=== PATIENT | male | born 1995 | race African-American/Black ===

== ENCOUNTER 2019-05-02 21:36 | Inpatient (IN) | payer OTHER ==
[2019-05-02] MEDS ORDERED: Sodium Chloride 0.9% 1,000 ML IV ONE (22:03)
--- NOTE | 2019-05-02 22:03 | EDM.PDOC ---
<Narcisa Whittaker - Last Filed: 05/02/19 22:33> ED HPI GENERAL MEDICAL PROBLEM - General Chief Complaint: Abdominal Pain Stated Complaint: PT HAS STOMACH PAIN Time Seen by Provider: 05/02/19 22:03 Source of Information: Reports: Patient History Limitations: Reports: No Limitations - History of Present Illness INITIAL COMMENTS - FREE TEXT/NARRATIVE: HISTORY AND PHYSICAL: History of present illness: patient is a 24-year-old male presents to the ED with complaint of abdominal pain 2 days. He states pain is in his lower abdomen and some in his upper abdomen as well.he's been nauseous and has had a couple episodes of vomiting. He denies diarrhea and states his last bowel movement was about 3 days Denies fevers, chills, chest pain, shortness of breath dysuria, hematuria, back pain. he reports history of abdominal surgeries but he is uncertain exactly what was done as he is child. Review of systems: As per history of present illness and below otherwise all systems reviewed and negative. Past medical history: As per history of present illness and as reviewed below otherwise noncontributory. Surgical history: As per history of present illness and as reviewed below otherwise noncontributory. Social history: No reported history of drug or alcohol abuse. Family history: As per history of present illness and as reviewed below otherwise noncontributory. Physical exam: General: Patient sitting comfortably in no acute distress and nontoxic appearing HEENT: Atraumatic, normocephalic, pupils reactive, negative for conjunctival pallor or scleral icterus, mucous membranes moist, throat clear, neck supple, nontender, trachea midline. No meningeal signs. Lungs: Clear to auscultation, breath sounds equal bilaterally, chest nontender. Heart: S1S2, regular, negative for clicks, rubs, or overt murmur. Abdomen: moderate suprapubic tenderness to palpation. Mild epigastric tenderness. there is a 3 cm scar to the right lower abdomen/pelvic area. Soft, nondistended. Negative for masses or hepatosplenomegaly. Negative for costovertebral tenderness. No rigidity, rebound, guarding. Pelvis: Stable nontender. Genitourinary: Deferred. Rectal: Deferred. Extremities: Atraumatic, negative for cords or calf pain. Neurovascular unremarkable. Neuro: Awake, alert, oriented. Cranial nerves II through XII unremarkable. Cerebellum unremarkable. Motor and sensory unremarkable throughout. Exam nonfocal. Notes: Diagnostics: CBC, CMP, UA, CT abdomen pelvis with contrast Therapeutics: 1L normal saline IV Prescriptions: Impression: [] Plan: [] Definitive disposition and diagnosis as appropriate pending reevaluation and review of above. Lower Abdomen Pain Score (Numeric/FACES): 10 - Related Data Allergies Allergy/AdvReac Type Severity Reaction Status Date / Time No Known Allergies Allergy Verified 05/02/19 21:51 Home Meds: Home Meds . [No Known Home Meds] 05/02/19 [History] Past Medical History - Past Health History Medical/Surgical History: Denies Medical/Surgical History Psychiatric History: Reports: None - Infectious Disease History Infectious Disease History: Reports: None Social & Family History - Tobacco Use Smoking Status *Q: Never Smoker - Recreational Drug Use Recreational Drug Use: No ED ROS GENERAL - Review of Systems Review Of Systems: ROS reveals no pertinent complaints other than HPI. ED EXAM, GI/ABD - Physical Exam Exam: See Below (see dictation) Course - Vital Signs Last Recorded V/S: Last Vital Signs Temp 37.3 C 05/03/19 01:16 Pulse 83 05/03/19 01:16 Resp BP 126/76 05/03/19 01:16 Pulse Ox 99 05/03/19 01:16 - Orders/Labs/Meds Labs: Laboratory Tests 05/02/19 05/02/19 05/02/19 Range/Units 22:06 22:15 22:15 WBC 12.21 H (4.0-11.0) K/uL RBC 6.38 H (4.50-5.90) M/uL Hgb 18.6 H (13.0-17.0) g/dL Hct 52.2 H (38.0-50.0) % MCV 81.8 (80.0-98.0) fL MCH 29.2 (27.0-32.0) pg MCHC 35.6 (31.0-37.0) g/dL RDW Std Deviation 40.0 (28.0-62.0) fl RDW Coeff of Paul 14 (11.0-15.0) % Plt Count 310 (150-400) K/uL MPV 10.30 (7.40-12.00) fL Neut % (Auto) 67.5 (48.0-80.0) % Lymph % (Auto) 22.0 (16.0-40.0) % Cotton % (Auto) 7.7 (0.0-15.0) % Eos % (Auto) 2.8 (0.0-7.0) % Baso % (Auto) 0.0 (0.0-1.5) % Neut # (Auto) 8.2 H (1.4-5.7) K/uL Lymph # (Auto) 2.7 H (0.6-2.4) K/uL Cotton # (Auto) 0.9 H (0.0-0.8) K/uL Eos # (Auto) 0.3 (0.0-0.7) K/uL Baso # (Auto) 0.0 (0.0-0.1) K/uL Nucleated RBC % 0.0 /100WBC Nucleated RBCs # 0 K/uL Lactate (0.20-2.00) mmol/L Sodium 137 (136-148) mmol/L Potassium 4.3 (3.5-5.1) mmol/L Chloride 98 (98-107) mmol/L Carbon Dioxide 26.6 (21.0-32.0) mmol/L BUN 24 H (7.0-18.0) mg/dL Creatinine 1.1 (0.8-1.3) mg/dL Est Cr Clr Drug Dosing 89.39 mL/min Estimated GFR (MDRD) > 60.0 ml/min Glucose 84 (74-106) mg/dL Calcium 10.0 (8.5-10.1) mg/dL Total Bilirubin 2.2 H (0.2-1.0) mg/dL AST 24 (15-37) IU/L ALT 17 (14-63) IU/L Alkaline Phosphatase 76 (46-116) U/L Total Protein 9.8 H (6.4-8.2) g/dL Albumin 4.8 (3.4-5.0) g/dL Globulin 5.0 H (2.6-4.0) g/dL Albumin/Globulin Ratio 1.0 (0.9-1.6) Urine Color YELLOW Urine Appearance CLEAR Urine pH 6.0 (5.0-8.0) Ur Specific [place] 1.025 (1.001-1.035) Urine Protein 30 H (NEGATIVE) mg/dL Urine Glucose (UA) NEGATIVE (NEGATIVE) mg/dL Urine Ketones 40 H (NEGATIVE) mg/dL Urine Occult Blood NEGATIVE (NEGATIVE) Urine Nitrite NEGATIVE (NEGATIVE) Urine Bilirubin MODERATE H (NEGATIVE) Urine Ictotest NEGATIVE Urine Urobilinogen 0.2 (<2.0) EU/dL Ur Leukocyte Esterase NEGATIVE (NEGATIVE) Urine RBC 0-1 (0-2/HPF) Urine WBC 0-1 (0-5/HPF) Ur Epithelial Cells RARE (NONE-FEW) Urine Bacteria RARE (NEGATIVE) 05/02/19 Range/Units 22:15 WBC (4.0-11.0) K/uL RBC (4.50-5.90) M/uL Hgb (13.0-17.0) g/dL Hct (38.0-50.0) % MCV (80.0-98.0) fL MCH (27.0-32.0) pg MCHC (31.0-37.0) g/dL RDW Std Deviation (28.0-62.0) fl RDW Coeff of Paul (11.0-15.0) % Plt Count (150-400) K/uL MPV (7.40-12.00) fL Neut % (Auto) (48.0-80.0) % Lymph % (Auto) (16.0-40.0) % Cotton % (Auto) (0.0-15.0) % Eos % (Auto) (0.0-7.0) % Baso % (Auto) (0.0-1.5) % Neut # (Auto) (1.4-5.7) K/uL Lymph # (Auto) (0.6-2.4) K/uL Cotton # (Auto) (0.0-0.8) K/uL Eos # (Auto) (0.0-0.7) K/uL Baso # (Auto) (0.0-0.1) K/uL Nucleated RBC % /100WBC Nucleated RBCs # K/uL Lactate 1.4 (0.20-2.00) mmol/L Sodium (136-148) mmol/L Potassium (3.5-5.1) mmol/L Chloride (98-107) mmol/L Carbon Dioxide (21.0-32.0) mmol/L BUN (7.0-18.0) mg/dL Creatinine (0.8-1.3) mg/dL Est Cr Clr Drug Dosing mL/min Estimated GFR (MDRD) ml/min Glucose (74-106) mg/dL Calcium (8.5-10.1) mg/dL Total Bilirubin (0.2-1.0) mg/dL AST (15-37) IU/L ALT (14-63) IU/L Alkaline Phosphatase (46-116) U/L Total Protein (6.4-8.2) g/dL Albumin (3.4-5.0) g/dL Globulin (2.6-4.0) g/dL Albumin/Globulin Ratio (0.9-1.6) Urine Color Urine Appearance Urine pH (5.0-8.0) Ur Specific [place] (1.001-1.035) Urine Protein (NEGATIVE) mg/dL Urine Glucose (UA) (NEGATIVE) mg/dL Urine Ketones (NEGATIVE) mg/dL Urine Occult Blood (NEGATIVE) Urine Nitrite (NEGATIVE) Urine Bilirubin (NEGATIVE) Urine Ictotest Urine Urobilinogen (<2.0) EU/dL Ur Leukocyte Esterase (NEGATIVE) Urine RBC (0-2/HPF) Urine WBC (0-5/HPF) Ur Epithelial Cells (NONE-FEW) Urine Bacteria (NEGATIVE) Meds: Medications Discontinued Medications Generic Name Dose Route Start Last Admin Trade Name Freq PRN Reason Stop Dose Admin Sodium Chloride 1,000 mls @ 999 mls/hr 05/02/19 22:03 05/02/19 22:15 Normal Saline IV 05/02/19 23:03 999 mls/hr STAT ONE Administration Iopamidol 100 ml 05/02/19 22:59 05/02/19 23:11 Isovue-370 (76%) IVPUSH 05/02/19 23:00 100 ml ONETIME ONE Administration Ketorolac Tromethamine 30 mg 05/02/19 23:39 05/02/19 23:53 Toradol IVPUSH 05/02/19 23:40 30 mg ONETIME ONE Administration Departure - Departure Disposition: Refer to Observation Clinical Impression: Abdominal pain, Small bowel obstruction - Discharge Information Referrals: PCP,None [Primary Care Provider] - Forms: ED Department Discharge <Venu Owens - Last Filed: 05/03/19 01:19> Departure - Departure Time of Disposition: 01:19 Condition: Good
[2019-05-02 22:48] LABS: BLOOD UREA NITROGEN,BUN 24 mg/dL (7.0-18.0); CARBON DIOXIDE,CO2 26.6 mmol/L (21.0-32.0); CHLORIDE,CL 98 mmol/L (98-107); GLUCOSE RANDOM 84 mg/dL (74-106); POTASSIUM,K 4.3 mmol/L (3.5-5.1); SODIUM,NA 137 mmol/L (136-148)
[2019-05-02] MEDS ORDERED: Iopamidol 755 Mg/ML 100 ML Bottle IVPUSH ONE (22:59)
[2019-05-02] MEDS ORDERED: Ketorolac 30 MG/ML SDV IVPUSH ONE (23:39)
--- NOTE | 2019-05-03 00:16 | CT ---
INDICATION: Abdominal pain. CT ABDOMEN AND PELVIS WITH CONTRAST TECHNIQUE: Multidetector CT imaging was performed through the abdomen and pelvis following intravenous contrast administration using 100 mL Isovue 370. Coronal and sagittal reconstructions were generated. COMPARISON: None. FINDINGS: Lower chest: Lung bases are clear. Liver: Within normal limits. Gallbladder and bile ducts: No gallbladder wall thickening or calcified gallstones. No biliary dilation identified. Pancreas: Unremarkable. Spleen: Normal. Adrenals: No nodules or masses. Kidneys, ureters, and urinary bladder: Small right renal cyst. No solid renal masses or hydronephrosis. No bladder mass or definite wall thickening. Gastrointestinal tract: Evaluation limited by a paucity of intra-abdominal fat. Moderate abnormal distention with gas and fluid of multiple small bowel loops in the left upper quadrant, central abdomen, and central pelvis with the rest of the bowel relatively collapsed, consistent with small bowel obstruction. Small bowel caliber transition not clearly localized. No definite bowel wall thickening or pneumatosis. Vascular structures: Normal for age. Peritoneum: Small amount of free fluid in the mesentery between distended small bowel loops. No loculated collection suggestive of abscess. No free air identified. Lymph nodes: No pathologically enlarged nodes identified. Reproductive organs: No pelvic masses. Bones: Normal for age. IMPRESSION: Intermediate-grade small bowel obstruction as detailed above. Underlying etiologies could include surgical adhesions, internal hernia, volvulus, etc. Associated minimal ascites is noted. JOSE URIBE MD [facility] Dictated by Fede Uribe MD @ 05/03/2019 12:12:58 AM Dictated by: Fede Uribe MD @ 05/03/2019 00:15:38 (Electronically Signed)
--- NOTE | 2019-05-03 01:21 | PCM.HP ---
H&P History of Present Illness - General Date of Service: 05/03/19 Source of Information: Patient History Limitations: Reports: No Limitations - History of Present Illness Initial Comments - Free Text/Narative: Patient is a 24 year old male who presents with 2 days of abdominal pain and bloating. It started suddenly and has not improved. He has never had any symptoms like this before. He denies fever or chills. He has not had a BM or passed flatus since this started. He had rice early today that he threw up and has not had anything to eat since. He denies any further episodes of vomiting. He had surgery in [place] as a child but doesnt know what it was for. He has a midline scar and drain sites on either side of his abdomen. He is not nauseated now. His VS were stable on presentation. His labs showed hemoconcentration. His bilirubin was elevated. His CT abdomen showed a SBO with no transition point. Lower Abdomen Pain Score (Numeric/FACES): 10 - Related Data Allergies/Adverse Reactions: Allergies Allergy/AdvReac Type Severity Reaction Status Date / Time No Known Allergies Allergy Verified 05/02/19 21:51 Home Medications: Home Meds . [No Known Home Meds] 05/02/19 [History] Past Medical History - Past Health History Medical/Surgical History: Denies Medical/Surgical History Psychiatric History: Reports: None - Infectious Disease History Infectious Disease History: Reports: None Social & Family History - Tobacco Use Smoking Status *Q: Never Smoker - Recreational Drug Use Recreational Drug Use: No H&P Review of Systems - Review of Systems: Review Of Systems: ROS reveals no pertinent complaints other than HPI. Exam - Exam Exam: See Below - Vital Signs Vital Signs: Last Vital Signs Temp 36.8 C 05/02/19 23:21 Pulse 87 05/02/19 23:21 Resp BP 128/80 05/02/19 23:21 Pulse Ox 100 05/02/19 23:21 Weight: 60 kg - Exam General: Alert, Oriented, Cooperative HEENT: Conjunctiva Clear, Mucosa Moist & [place], Posterior Pharynx Clear Neck: Supple, Trachea Midline Lungs: Clear to Auscultation, Normal Respiratory Effort Cardiovascular: Regular Rate, Regular Rhythm GI/Abdominal Exam: Soft, Non-Tender, No Mass, Distended, Other (Well healed ex lap scar along midline. No hernias palpated. Drain scars on either side of abdomen. ) Back Exam: Normal Inspection Extremities: Normal Inspection - Patient Data Lab Results Last 24 hrs: Laboratory Results - last 24 hr 05/02/19 05/02/19 05/02/19 Range/Units 22:06 22:15 22:15 WBC 12.21 H (4.0-11.0) K/uL RBC 6.38 H (4.50-5.90) M/uL Hgb 18.6 H (13.0-17.0) g/dL Hct 52.2 H (38.0-50.0) % MCV 81.8 (80.0-98.0) fL MCH 29.2 (27.0-32.0) pg MCHC 35.6 (31.0-37.0) g/dL RDW Std Deviation 40.0 (28.0-62.0) fl RDW Coeff of Paul 14 (11.0-15.0) % Plt Count 310 (150-400) K/uL MPV 10.30 (7.40-12.00) fL Neut % (Auto) 67.5 (48.0-80.0) % Lymph % (Auto) 22.0 (16.0-40.0) % [place] % (Auto) 7.7 (0.0-15.0) % Eos % (Auto) 2.8 (0.0-7.0) % Baso % (Auto) 0.0 (0.0-1.5) % Neut # (Auto) 8.2 H (1.4-5.7) K/uL Lymph # (Auto) 2.7 H (0.6-2.4) K/uL [place] # (Auto) 0.9 H (0.0-0.8) K/uL Eos # (Auto) 0.3 (0.0-0.7) K/uL Baso # (Auto) 0.0 (0.0-0.1) K/uL Nucleated RBC % 0.0 /100WBC Nucleated RBCs # 0 K/uL Lactate (0.20-2.00) mmol/L Sodium 137 (136-148) mmol/L Potassium 4.3 (3.5-5.1) mmol/L Chloride 98 (98-107) mmol/L Carbon Dioxide 26.6 (21.0-32.0) mmol/L BUN 24 H (7.0-18.0) mg/dL Creatinine 1.1 (0.8-1.3) mg/dL Est Cr Clr Drug Dosing 89.39 mL/min Estimated GFR (MDRD) > 60.0 ml/min Glucose 84 (74-106) mg/dL Calcium 10.0 (8.5-10.1) mg/dL Total Bilirubin 2.2 H (0.2-1.0) mg/dL AST 24 (15-37) IU/L ALT 17 (14-63) IU/L Alkaline Phosphatase 76 (46-116) U/L Total Protein 9.8 H (6.4-8.2) g/dL Albumin 4.8 (3.4-5.0) g/dL Globulin 5.0 H (2.6-4.0) g/dL Albumin/Globulin Ratio 1.0 (0.9-1.6) Urine Color YELLOW Urine Appearance CLEAR Urine pH 6.0 (5.0-8.0) Ur Specific [place] 1.025 (1.001-1.035) Urine Protein 30 H (NEGATIVE) mg/dL Urine Glucose (UA) NEGATIVE (NEGATIVE) mg/dL Urine Ketones 40 H (NEGATIVE) mg/dL Urine Occult Blood NEGATIVE (NEGATIVE) Urine Nitrite NEGATIVE (NEGATIVE) Urine Bilirubin MODERATE H (NEGATIVE) Urine Ictotest NEGATIVE Urine Urobilinogen 0.2 (<2.0) EU/dL Ur Leukocyte Esterase NEGATIVE (NEGATIVE) Urine RBC 0-1 (0-2/HPF) Urine WBC 0-1 (0-5/HPF) Ur Epithelial Cells RARE (NONE-FEW) Urine Bacteria RARE (NEGATIVE) 05/02/19 Range/Units 22:15 WBC (4.0-11.0) K/uL RBC (4.50-5.90) M/uL Hgb (13.0-17.0) g/dL Hct (38.0-50.0) % MCV (80.0-98.0) fL MCH (27.0-32.0) pg MCHC (31.0-37.0) g/dL RDW Std Deviation (28.0-62.0) fl RDW Coeff of Paul (11.0-15.0) % Plt Count (150-400) K/uL MPV (7.40-12.00) fL Neut % (Auto) (48.0-80.0) % Lymph % (Auto) (16.0-40.0) % [place] % (Auto) (0.0-15.0) % Eos % (Auto) (0.0-7.0) % Baso % (Auto) (0.0-1.5) % Neut # (Auto) (1.4-5.7) K/uL Lymph # (Auto) (0.6-2.4) K/uL [place] # (Auto) (0.0-0.8) K/uL Eos # (Auto) (0.0-0.7) K/uL Baso # (Auto) (0.0-0.1) K/uL Nucleated RBC % /100WBC Nucleated RBCs # K/uL Lactate 1.4 (0.20-2.00) mmol/L Sodium (136-148) mmol/L Potassium (3.5-5.1) mmol/L Chloride (98-107) mmol/L Carbon Dioxide (21.0-32.0) mmol/L BUN (7.0-18.0) mg/dL Creatinine (0.8-1.3) mg/dL Est Cr Clr Drug Dosing mL/min Estimated GFR (MDRD) ml/min Glucose (74-106) mg/dL Calcium (8.5-10.1) mg/dL Total Bilirubin (0.2-1.0) mg/dL AST (15-37) IU/L ALT (14-63) IU/L Alkaline Phosphatase (46-116) U/L Total Protein (6.4-8.2) g/dL Albumin (3.4-5.0) g/dL Globulin (2.6-4.0) g/dL Albumin/Globulin Ratio (0.9-1.6) Urine Color Urine Appearance Urine pH (5.0-8.0) Ur Specific [place] (1.001-1.035) Urine Protein (NEGATIVE) mg/dL Urine Glucose (UA) (NEGATIVE) mg/dL Urine Ketones (NEGATIVE) mg/dL Urine Occult Blood (NEGATIVE) Urine Nitrite (NEGATIVE) Urine Bilirubin (NEGATIVE) Urine Ictotest Urine Urobilinogen (<2.0) EU/dL Ur Leukocyte Esterase (NEGATIVE) Urine RBC (0-2/HPF) Urine WBC (0-5/HPF) Ur Epithelial Cells (NONE-FEW) Urine Bacteria (NEGATIVE) Result Diagrams: 05/02/19 22:15 05/02/19 22:15 - Problem List (1) SBO (small bowel obstruction) SNOMED Code(s): 370241569 ICD Code: K56.609 - UNSP INTESTNL OBST, UNSP TO PARTIAL VERSUS COMPLETE OBST Status: Acute Current Visit: Yes Problem List Initiated/Reviewed/Updated: Yes Assessment/Plan Comment:: Patient is a 24 year old male who presents with a SBO most likely due to surgical adhesions. Will admit for close observation, strict NPO and IVF resuscitation. Will recheck labs in am. We discussed close monitoring of his abdominal exam and the possibility of surgery. He verbalized understanding.
[2019-05-03] MEDS ORDERED: Sodium Chloride 0.9% 10 ML SDV IV PRN (01:26)
[2019-05-03] MEDS ORDERED: HYDROmorphone 2 MG/ML SDV IVPUSH PRN (01:26)
[2019-05-03] MEDS ORDERED: diphenhydrAMINE 50 MG/ML SDV IVPUSH PRN (01:26)
[2019-05-03] MEDS ORDERED: Ondansetron 4 MG/2 ML SDV IVPUSH PRN (01:26)
[2019-05-03] MEDS ORDERED: Sodium Chloride 0.9% 2.5 ML Syringe FLUSH PRN (01:26)
[2019-05-03] MEDS ORDERED: Sodium Chloride 0.9% 10 ML Syringe FLUSH PRN (01:26)
[2019-05-03] MEDS ORDERED: Promethazine 25 MG/ML SDV IM PRN (01:26)
[2019-05-03] MEDS: Lactated Ringers 1,000 ML IV SCH ×3 (02:40→19:18)
[2019-05-03 07:06] LABS: BLOOD UREA NITROGEN,BUN 23 mg/dL (7.0-18.0); CARBON DIOXIDE,CO2 28.2 mmol/L (21.0-32.0); CHLORIDE,CL 101 mmol/L (98-107); GLUCOSE RANDOM 80 mg/dL (74-106); POTASSIUM,K 4.1 mmol/L (3.5-5.1); SODIUM,NA 138 mmol/L (136-148)
[2019-05-03] MEDS: HYDROmorphone 1 MG/ML Syringe IVPUSH PRN ×3 (07:33→15:57)
[2019-05-03] MEDS ORDERED: Magnesium Sulfate/Water 2 GM in Premix Bag 1 BAG IV ONE (08:36)
--- NOTE | 2019-05-03 08:40 | PCM.PN ---
- General Info Date of Service: 05/03/19 Subjective Update: Patient states that his abdominal discomfort is unchanged. He is still bloated. Denies flatus or BM. He is not nauseated. He received one dose of IV pain meds since admission. VSS otherwise. No UOP since admission. - Review of Systems General: Reports: No Symptoms HEENT: Reports: No Symptoms Pulmonary: Reports: No Symptoms Cardiovascular: Reports: No Symptoms Gastrointestinal: Reports: No Symptoms. Denies: Flatus - Patient Data Vitals - Most Recent: Last Vital Signs Temp 37.0 C 05/03/19 08:00 Pulse 80 05/03/19 08:00 Resp 16 05/03/19 08:00 BP 107/63 05/03/19 08:00 Pulse Ox 100 05/03/19 08:00 Weight - Most Recent: 60.328 kg I&O - Last 24 Hours: Intake & Output 05/02/19 05/03/19 05/03/19 22:59 06:59 14:59 Intake Total 245 Output Total 0 Balance 245 Lab Results Last 24 Hours: Laboratory Results - last 24 hr 05/02/19 05/02/19 05/02/19 Range/Units 22:06 22:15 22:15 WBC 12.21 H (4.0-11.0) K/uL RBC 6.38 H (4.50-5.90) M/uL Hgb 18.6 H (13.0-17.0) g/dL Hct 52.2 H (38.0-50.0) % MCV 81.8 (80.0-98.0) fL MCH 29.2 (27.0-32.0) pg MCHC 35.6 (31.0-37.0) g/dL RDW Std Deviation 40.0 (28.0-62.0) fl RDW Coeff of Paul 14 (11.0-15.0) % Plt Count 310 (150-400) K/uL MPV 10.30 (7.40-12.00) fL Neut % (Auto) 67.5 (48.0-80.0) % Lymph % (Auto) 22.0 (16.0-40.0) % [place] % (Auto) 7.7 (0.0-15.0) % Eos % (Auto) 2.8 (0.0-7.0) % Baso % (Auto) 0.0 (0.0-1.5) % Neut # (Auto) 8.2 H (1.4-5.7) K/uL Lymph # (Auto) 2.7 H (0.6-2.4) K/uL [place] # (Auto) 0.9 H (0.0-0.8) K/uL Eos # (Auto) 0.3 (0.0-0.7) K/uL Baso # (Auto) 0.0 (0.0-0.1) K/uL Nucleated RBC % 0.0 /100WBC Nucleated RBCs # 0 K/uL Lactate (0.20-2.00) mmol/L Sodium 137 (136-148) mmol/L Potassium 4.3 (3.5-5.1) mmol/L Chloride 98 (98-107) mmol/L Carbon Dioxide 26.6 (21.0-32.0) mmol/L BUN 24 H (7.0-18.0) mg/dL Creatinine 1.1 (0.8-1.3) mg/dL Est Cr Clr Drug Dosing 89.39 mL/min Estimated GFR (MDRD) > 60.0 ml/min Glucose 84 (74-106) mg/dL Calcium 10.0 (8.5-10.1) mg/dL Phosphorus (2.6-4.7) mg/dL Magnesium (1.8-2.4) mg/dL Total Bilirubin 2.2 H (0.2-1.0) mg/dL AST 24 (15-37) IU/L ALT 17 (14-63) IU/L Alkaline Phosphatase 76 (46-116) U/L Total Protein 9.8 H (6.4-8.2) g/dL Albumin 4.8 (3.4-5.0) g/dL Globulin 5.0 H (2.6-4.0) g/dL Albumin/Globulin Ratio 1.0 (0.9-1.6) Urine Color YELLOW Urine Appearance CLEAR Urine pH 6.0 (5.0-8.0) Ur Specific [place] 1.025 (1.001-1.035) Urine Protein 30 H (NEGATIVE) mg/dL Urine Glucose (UA) NEGATIVE (NEGATIVE) mg/dL Urine Ketones 40 H (NEGATIVE) mg/dL Urine Occult Blood NEGATIVE (NEGATIVE) Urine Nitrite NEGATIVE (NEGATIVE) Urine Bilirubin MODERATE H (NEGATIVE) Urine Ictotest NEGATIVE Urine Urobilinogen 0.2 (<2.0) EU/dL Ur Leukocyte Esterase NEGATIVE (NEGATIVE) Urine RBC 0-1 (0-2/HPF) Urine WBC 0-1 (0-5/HPF) Ur Epithelial Cells RARE (NONE-FEW) Urine Bacteria RARE (NEGATIVE) 05/02/19 05/03/19 05/03/19 Range/Units 22:15 05:48 05:48 WBC 10.06 (4.0-11.0) K/uL RBC 5.61 (4.50-5.90) M/uL Hgb 16.1 (13.0-17.0) g/dL Hct 46.2 (38.0-50.0) % MCV 82.4 (80.0-98.0) fL MCH 28.7 (27.0-32.0) pg MCHC 34.8 (31.0-37.0) g/dL RDW Std Deviation 40.0 (28.0-62.0) fl RDW Coeff of Paul 13 (11.0-15.0) % Plt Count 321 (150-400) K/uL MPV 10.70 (7.40-12.00) fL Neut % (Auto) 55.1 (48.0-80.0) % Lymph % (Auto) 30.6 (16.0-40.0) % [place] % (Auto) 10.0 (0.0-15.0) % Eos % (Auto) 4.2 (0.0-7.0) % Baso % (Auto) 0.1 (0.0-1.5) % Neut # (Auto) 5.5 (1.4-5.7) K/uL Lymph # (Auto) 3.1 H (0.6-2.4) K/uL [place] # (Auto) 1.0 H (0.0-0.8) K/uL Eos # (Auto) 0.4 (0.0-0.7) K/uL Baso # (Auto) 0.0 (0.0-0.1) K/uL Nucleated RBC % 0.0 /100WBC Nucleated RBCs # 0 K/uL Lactate 1.4 (0.20-2.00) mmol/L Sodium 138 (136-148) mmol/L Potassium 4.1 (3.5-5.1) mmol/L Chloride 101 (98-107) mmol/L Carbon Dioxide 28.2 (21.0-32.0) mmol/L BUN 23 H (7.0-18.0) mg/dL Creatinine 1.2 (0.8-1.3) mg/dL Est Cr Clr Drug Dosing 82.39 mL/min Estimated GFR (MDRD) > 60.0 ml/min Glucose 80 (74-106) mg/dL Calcium 9.4 (8.5-10.1) mg/dL Phosphorus 4.6 (2.6-4.7) mg/dL Magnesium 2.0 (1.8-2.4) mg/dL Total Bilirubin 1.8 H (0.2-1.0) mg/dL AST 11 L (15-37) IU/L ALT 16 (14-63) IU/L Alkaline Phosphatase 60 (46-116) U/L Total Protein 8.0 (6.4-8.2) g/dL Albumin 3.9 (3.4-5.0) g/dL Globulin 4.1 H (2.6-4.0) g/dL Albumin/Globulin Ratio 1.0 (0.9-1.6) Urine Color Urine Appearance Urine pH (5.0-8.0) Ur Specific [place] (1.001-1.035) Urine Protein (NEGATIVE) mg/dL Urine Glucose (UA) (NEGATIVE) mg/dL Urine Ketones (NEGATIVE) mg/dL Urine Occult Blood (NEGATIVE) Urine Nitrite (NEGATIVE) Urine Bilirubin (NEGATIVE) Urine Ictotest Urine Urobilinogen (<2.0) EU/dL Ur Leukocyte Esterase (NEGATIVE) Urine RBC (0-2/HPF) Urine WBC (0-5/HPF) Ur Epithelial Cells (NONE-FEW) Urine Bacteria (NEGATIVE) Med Orders - Current: Current Medications Diphenhydramine HCl (Benadryl) 25 mg IVPUSH Q4H PRN PRN Reason: Itching Hydromorphone HCl (Dilaudid) 0.5 mg IVPUSH Q1H PRN PRN Reason: Pain (severe 7-10) Last Admin: 05/03/19 07:33 Dose: 0.5 mg Lactated Ringer's (Ringers, Lactated) 1,000 mls @ 125 mls/hr IV ASDIRECTED [facility] Last Admin: 05/03/19 02:40 Dose: 125 mls/hr Lactated Ringer's (Ringers, Lactated) 1,000 mls @ 1,000 mls/hr IV .BOLUS K[facility] Ondansetron HCl (Zofran) 4 mg IVPUSH Q6H PRN PRN Reason: Nausea/Vomiting Promethazine HCl (Phenergan) 12.5 mg IM Q6H PRN PRN Reason: Nausea Sodium Chloride (Saline Flush) 10 ml FLUSH ASDIRECTED PRN PRN Reason: Keep Vein Open Sodium Chloride (Saline Flush) 2.5 ml FLUSH ASDIRECTED PRN PRN Reason: Keep Vein Open Sodium Chloride (Normal Saline) 10 ml IV ASDIRECTED PRN PRN Reason: IV Use Discontinued Medications Hydromorphone HCl (Dilaudid) 0.5 mg IVPUSH Q1H PRN PRN Reason: Pain (severe 7-10) Sodium Chloride (Normal Saline) 1,000 mls @ 999 mls/hr IV STAT ONE Stop: 05/02/19 23:03 Last Admin: 05/02/19 22:15 Dose: 999 mls/hr Iopamidol (Isovue-370 (76%)) 100 ml IVPUSH ONETIME ONE Stop: 05/02/19 23:00 Last Admin: 05/02/19 23:11 Dose: 100 ml Ketorolac Tromethamine (Toradol) 30 mg IVPUSH ONETIME ONE Stop: 05/02/19 23:40 Last Admin: 05/02/19 23:53 Dose: 30 mg - Exam General: Alert, Oriented, Cooperative HEENT: Pupils Equal, Pupils Reactive Lungs: Normal Respiratory Effort Cardiovascular: Regular Rate GI/Abdominal Exam: Soft, Non-Tender, Distended - Problem List & Annotations (1) SBO (small bowel obstruction) SNOMED Code(s): 425270708 Code(s): K56.609 - UNSP INTESTNL OBST, UNSP TO PARTIAL VERSUS COMPLETE OBST Status: Acute Current Visit: Yes - Problem List Review Problem List Initiated/Reviewed/Updated: Yes - My Orders Last 24 Hours: My Active Orders 05/03/19 01:26 Patient Status [ADT] Routine Oxygen Therapy [RC] PRN RT Incentive Spirometry [RC] Q1HWA Up ad Anca [RC] ASDIRECTED Vital Signs [RC] PER UNIT ROUTINE Ondansetron [Zofran] 4 mg IVPUSH Q6H PRN Promethazine [Phenergan] 12.5 mg IM Q6H PRN Sodium Chloride 0.9% [Normal Saline] 10 ml IV ASDIRECTED PRN Sodium Chloride 0.9% [Saline Flush] 10 ml FLUSH ASDIRECTED PRN Sodium Chloride 0.9% [Saline Flush] 2.5 ml FLUSH ASDIRECTED PRN diphenhydrAMINE [Benadryl] 25 mg IVPUSH Q4H PRN Peripheral IV Insertion Adult [OM.PC] Urgent Resuscitation Status Routine 05/03/19 01:27 Intake and Output [RC] Q12H Notify Provider Vital Signs [RC] PRN 05/03/19 01:30 Lactated Ringers [Ringers, Lactated] 1,000 ml IV ASDIRECTED 05/03/19 07:30 HYDROmorphone [Dilaudid] 0.5 mg IVPUSH Q1H PRN 05/03/19 08:45 Lactated Ringers [Ringers, Lactated] 1,000 ml IV .BOLUS 05/03/19 Breakfast Nothing Per Oral Diet [DIET] - Plan Plan:: Pain: IV dilaudid 0.5mg q1hr prn pain. Overall seems quite comfortable. CV: Stable. VS per unit routine. Pulm: IS use every hour. I encouraged the patient to be out of bed and ambulating today. GI: partial SBO. No nausea or vomiting. Remains distended. Had good bowel sounds early this morning. Will await flatus before advancing diet. Strict NPO until then. Bilirubin decreasing. Likely elevated due to dehydration. Will continue to monitor. Renal: BUN/Cr mildly elevated on admission. LR @ 125ml/hr. Will give a 1L bolus this morning. Mag low this am. Will replace with IV mag. If no UOP by 11:00 need to perform a bladder scan and cath for >600ml urine. Heme: Hemoglobin now within normal range. Hemoconcentrated on admission. Continue resuscitation ID: no need for antibiotics. WBC within normal limits now. Likely a stress reaction. Px: SCDs. Lovenox 40mg q daily. Will hold GI prophylaxis at this time. If >2 days with no return of bowel function will start.
[2019-05-03] MEDS ORDERED: Lactated Ringers 1,000 ML IV SCH (08:45)
[2019-05-04] MEDS: HYDROmorphone 1 MG/ML Syringe IVPUSH PRN ×3 (01:03→20:35)
[2019-05-04] MEDS: Lactated Ringers 1,000 ML IV SCH ×3 (03:22→19:07)
[2019-05-04 06:36] LABS: BLOOD UREA NITROGEN,BUN 17 mg/dL (7.0-18.0); CARBON DIOXIDE,CO2 27.4 mmol/L (21.0-32.0); CHLORIDE,CL 101 mmol/L (98-107); GLUCOSE RANDOM 79 mg/dL (74-106); POTASSIUM,K 4.5 mmol/L (3.5-5.1); SODIUM,NA 136 mmol/L (136-148)
--- NOTE | 2019-05-04 09:13 | PCM.PN ---
- General Info Date of Service: 05/04/19 Functional Status: Reports: Pain Controlled, Ambulating, Urinating - Review of Systems General: Reports: No Symptoms Pulmonary: Reports: No Symptoms Cardiovascular: Reports: No Symptoms Gastrointestinal: Denies: Abdominal Pain, Diarrhea, Flatus, Nausea, Vomiting Genitourinary: Reports: No Symptoms - Patient Data Vitals - Most Recent: Last Vital Signs Temp 36.6 C 05/04/19 07:37 Pulse 68 05/04/19 07:37 Resp 16 05/04/19 07:37 BP 113/66 05/04/19 07:37 Pulse Ox 100 05/04/19 07:37 Weight - Most Recent: 60.328 kg I&O - Last 24 Hours: Intake & Output 05/03/19 05/04/19 05/04/19 22:59 06:59 14:59 Intake Total 2288 1569 Output Total 400 600 Balance 1888 969 Lab Results Last 24 Hours: Laboratory Results - last 24 hr 05/04/19 05/04/19 Range/Units 05:42 05:42 WBC 8.19 (4.0-11.0) K/uL RBC 5.29 (4.50-5.90) M/uL Hgb 15.2 (13.0-17.0) g/dL Hct 43.5 (38.0-50.0) % MCV 82.2 (80.0-98.0) fL MCH 28.7 (27.0-32.0) pg MCHC 34.9 (31.0-37.0) g/dL RDW Std Deviation 39.9 (28.0-62.0) fl RDW Coeff of Paul 13 (11.0-15.0) % Plt Count 301 (150-400) K/uL MPV 10.50 (7.40-12.00) fL Nucleated RBC % 0.0 /100WBC Nucleated RBCs # 0 K/uL Sodium 136 (136-148) mmol/L Potassium 4.5 (3.5-5.1) mmol/L Chloride 101 (98-107) mmol/L Carbon Dioxide 27.4 (21.0-32.0) mmol/L BUN 17 (7.0-18.0) mg/dL Creatinine 0.9 (0.8-1.3) mg/dL Est Cr Clr Drug Dosing 109.86 mL/min Estimated GFR (MDRD) > 60.0 ml/min Glucose 79 (74-106) mg/dL Calcium 8.5 (8.5-10.1) mg/dL Total Bilirubin 1.8 H (0.2-1.0) mg/dL AST 15 (15-37) IU/L ALT 14 (14-63) IU/L Alkaline Phosphatase 53 (46-116) U/L Total Protein 6.9 (6.4-8.2) g/dL Albumin 3.3 L (3.4-5.0) g/dL Globulin 3.6 (2.6-4.0) g/dL Albumin/Globulin Ratio 0.9 (0.9-1.6) Med Orders - Current: Current Medications Diphenhydramine HCl (Benadryl) 25 mg IVPUSH Q4H PRN PRN Reason: Itching Hydromorphone HCl (Dilaudid) 0.5 mg IVPUSH Q1H PRN PRN Reason: Pain (severe 7-10) Last Admin: 05/04/19 01:03 Dose: 0.5 mg Lactated Ringer's (Ringers, Lactated) 1,000 mls @ 125 mls/hr IV ASDIRECTED [facility] Last Admin: 05/04/19 03:22 Dose: 125 mls/hr Lactated Ringer's (Ringers, Lactated) 1,000 mls @ 999 mls/hr IV .BOLUS [facility] Last Admin: 05/03/19 08:59 Dose: 999 mls/hr Ondansetron HCl (Zofran) 4 mg IVPUSH Q6H PRN PRN Reason: Nausea/Vomiting Polyethylene Glycol (Miralax) 17 gm PO DAILY [facility] Promethazine HCl (Phenergan) 12.5 mg IM Q6H PRN PRN Reason: Nausea Sodium Chloride (Saline Flush) 10 ml FLUSH ASDIRECTED PRN PRN Reason: Keep Vein Open Sodium Chloride (Saline Flush) 2.5 ml FLUSH ASDIRECTED PRN PRN Reason: Keep Vein Open Sodium Chloride (Normal Saline) 10 ml IV ASDIRECTED PRN PRN Reason: IV Use Discontinued Medications Hydromorphone HCl (Dilaudid) 0.5 mg IVPUSH Q1H PRN PRN Reason: Pain (severe 7-10) Sodium Chloride (Normal Saline) 1,000 mls @ 999 mls/hr IV STAT ONE Stop: 05/02/19 23:03 Last Admin: 05/02/19 22:15 Dose: 999 mls/hr Magnesium Sulfate 2 gm/ Premix 50 mls @ 50 mls/hr IV ONETIME ONE Stop: 05/03/19 09:35 Last Admin: 05/03/19 09:11 Dose: 50 mls/hr Iopamidol (Isovue-370 (76%)) 100 ml IVPUSH ONETIME ONE Stop: 05/02/19 23:00 Last Admin: 05/02/19 23:11 Dose: 100 ml Ketorolac Tromethamine (Toradol) 30 mg IVPUSH ONETIME ONE Stop: 05/02/19 23:40 Last Admin: 05/02/19 23:53 Dose: 30 mg - Exam General: Alert, Oriented HEENT: Pupils Equal, Pupils Reactive Lungs: Normal Respiratory Effort Cardiovascular: Regular Rate GI/Abdominal Exam: Normal Bowel Sounds, Soft, Non-Tender, Distended (mildly distended throughout ). No: Guarding, Rigid, Rebound - Problem List & Annotations (1) SBO (small bowel obstruction) SNOMED Code(s): 660137375 Code(s): K56.609 - UNSP INTESTNL OBST, UNSP TO PARTIAL VERSUS COMPLETE OBST Status: Acute Current Visit: Yes - Problem List Review Problem List Initiated/Reviewed/Updated: Yes - My Orders Last 24 Hours: My Active Orders 05/03/19 08:45 Lactated Ringers [Ringers, Lactated] 1,000 ml IV .BOLUS 05/03/19 10:59 Antiembolic Devices [RC] PER UNIT ROUTINE Sequential Compression Device [OM.PC] Routine 05/04/19 09:15 Polyethylene Glycol 3350 [MiraLAX] 17 gm PO DAILY 05/04/19 Lunch Clear Liquid Diet [DIET] - Plan Plan:: Patient's abdomen is softer today. He has brisk bowel sounds throughout all four quadrants. He has no pain, nausea and hasnt vomited. Will try clear liquids today. Will stick to that until passing flatus. Will add miralax daily as well.
[2019-05-04] MEDS ORDERED: traMADol 50 MG Tab PO PRN (09:14)
[2019-05-04] MEDS ORDERED: Ketorolac 10 MG Tab PO PRN (09:14)
[2019-05-04] MEDS: Polyethylene Glycol 3350 Powder 17 GM Packet PO SCH (09:52)
[2019-05-04] MEDS: Multivitamin Tab PO SCH (09:53)
[2019-05-05] MEDS: Lactated Ringers 1,000 ML IV SCH (02:49)
[2019-05-05 06:48] LABS: BLOOD UREA NITROGEN,BUN 13 mg/dL (7.0-18.0); CHLORIDE,CL 98 mmol/L (98-107); GLUCOSE RANDOM 79 mg/dL (74-106); POTASSIUM,K 3.9 mmol/L (3.5-5.1); SODIUM,NA 132 mmol/L (136-148)
--- NOTE | 2019-05-05 09:07 | PCM.PN ---
- General Info Date of Service: 05/05/19 Subjective Update: Patient had increased bloating and abdominal discomfort with advancement of diet to clears. I re-examined patient yesterday afternoon and he felt more bloated. He was made NPO again. No flatus or BM last night. Still feels bloated. No nausea. Vitals stable. - Review of Systems General: Reports: No Symptoms Gastrointestinal: Reports: Other (Bloated). Denies: Diarrhea, Flatus, Nausea, Vomiting - Patient Data Vitals - Most Recent: Last Vital Signs Temp 36.6 C 05/05/19 07:10 Pulse 77 05/05/19 07:10 Resp 16 05/05/19 07:10 BP 105/67 05/05/19 07:10 Pulse Ox 99 05/05/19 07:10 Weight - Most Recent: 60.328 kg I&O - Last 24 Hours: Intake & Output 05/04/19 05/05/19 05/05/19 22:59 06:59 14:59 Intake Total 1478 1354 Output Total 450 900 Balance 1028 454 Lab Results Last 24 Hours: Laboratory Results - last 24 hr 05/05/19 05/05/19 Range/Units 05:33 05:33 WBC 8.51 (4.0-11.0) K/uL RBC 5.34 (4.50-5.90) M/uL Hgb 15.3 (13.0-17.0) g/dL Hct 43.4 (38.0-50.0) % MCV 81.3 (80.0-98.0) fL MCH 28.7 (27.0-32.0) pg MCHC 35.3 (31.0-37.0) g/dL RDW Std Deviation 38.7 (28.0-62.0) fl RDW Coeff of Paul 13 (11.0-15.0) % Plt Count 334 (150-400) K/uL MPV 10.60 (7.40-12.00) fL Nucleated RBC % 0.0 /100WBC Nucleated RBCs # 0 K/uL Sodium 132 L (136-148) mmol/L Potassium 3.9 (3.5-5.1) mmol/L Chloride 98 (98-107) mmol/L Carbon Dioxide 25.0 (21.0-32.0) mmol/L BUN 13 (7.0-18.0) mg/dL Creatinine 0.8 (0.8-1.3) mg/dL Est Cr Clr Drug Dosing 123.59 mL/min Estimated GFR (MDRD) > 60.0 ml/min Glucose 79 (74-106) mg/dL Calcium 8.7 (8.5-10.1) mg/dL Total Bilirubin 1.8 H (0.2-1.0) mg/dL AST 11 L (15-37) IU/L ALT 15 (14-63) IU/L Alkaline Phosphatase 49 (46-116) U/L Total Protein 6.9 (6.4-8.2) g/dL Albumin 3.2 L (3.4-5.0) g/dL Globulin 3.7 (2.6-4.0) g/dL Albumin/Globulin Ratio 0.9 (0.9-1.6) Med Orders - Current: Current Medications Diphenhydramine HCl (Benadryl) 25 mg IVPUSH Q4H PRN PRN Reason: Itching Hydromorphone HCl (Dilaudid) 0.5 mg IVPUSH Q1H PRN PRN Reason: Pain (severe 7-10) Last Admin: 05/04/19 20:35 Dose: 0.5 mg Sodium Chloride (Normal Saline) 1,000 mls @ 100 mls/hr IV ASDIRECTED [facility] Ketorolac Tromethamine (Toradol) 10 mg PO Q6H PRN PRN Reason: Pain Stop: 05/09/19 09:15 Multivitamins/Minerals/Vitamin C (Tab-A-Shiv) 1 tab PO DAILY [facility] Last Admin: 05/04/19 09:53 Dose: 1 tab Ondansetron HCl (Zofran) 4 mg IVPUSH Q6H PRN PRN Reason: Nausea/Vomiting Polyethylene Glycol (Miralax) 17 gm PO DAILY [facility] Last Admin: 05/04/19 09:52 Dose: 17 gm Promethazine HCl (Phenergan) 12.5 mg IM Q6H PRN PRN Reason: Nausea Sodium Chloride (Saline Flush) 10 ml FLUSH ASDIRECTED PRN PRN Reason: Keep Vein Open Sodium Chloride (Saline Flush) 2.5 ml FLUSH ASDIRECTED PRN PRN Reason: Keep Vein Open Sodium Chloride (Normal Saline) 10 ml IV ASDIRECTED PRN PRN Reason: IV Use Tramadol HCl (Ultram) 50 mg PO Q4H PRN PRN Reason: Pain Last Admin: 05/04/19 18:24 Dose: 50 mg Discontinued Medications Hydromorphone HCl (Dilaudid) 0.5 mg IVPUSH Q1H PRN PRN Reason: Pain (severe 7-10) Sodium Chloride (Normal Saline) 1,000 mls @ 999 mls/hr IV STAT ONE Stop: 05/02/19 23:03 Last Admin: 05/02/19 22:15 Dose: 999 mls/hr Lactated Ringer's (Ringers, Lactated) 1,000 mls @ 125 mls/hr IV ASDIRECTED [facility] Last Admin: 05/05/19 02:49 Dose: 125 mls/hr Lactated Ringer's (Ringers, Lactated) 1,000 mls @ 999 mls/hr IV .BOLUS [facility] Last Admin: 05/03/19 08:59 Dose: 999 mls/hr Magnesium Sulfate 2 gm/ Premix 50 mls @ 50 mls/hr IV ONETIME ONE Stop: 05/03/19 09:35 Last Admin: 05/03/19 09:11 Dose: 50 mls/hr Iopamidol (Isovue-370 (76%)) 100 ml IVPUSH ONETIME ONE Stop: 05/02/19 23:00 Last Admin: 05/02/19 23:11 Dose: 100 ml Ketorolac Tromethamine (Toradol) 30 mg IVPUSH ONETIME ONE Stop: 05/02/19 23:40 Last Admin: 05/02/19 23:53 Dose: 30 mg - Exam General: Alert, Oriented, Cooperative HEENT: Pupils Equal Lungs: Normal Respiratory Effort Cardiovascular: Regular Rate GI/Abdominal Exam: Soft, Distended (mild-moderate), Tender (mild LUQ tenderness) . No: Rigid, Rebound - Problem List & Annotations (1) SBO (small bowel obstruction) SNOMED Code(s): 990241103 Code(s): K56.609 - UNSP INTESTNL OBST, UNSP TO PARTIAL VERSUS COMPLETE OBST Status: Acute Current Visit: Yes - Problem List Review Problem List Initiated/Reviewed/Updated: Yes - My Orders Last 24 Hours: My Active Orders 05/04/19 09:14 Ketorolac [Toradol] 10 mg PO Q6H PRN traMADol [Ultram] 50 mg PO Q4H PRN 05/04/19 09:15 Multivitamins [Tab-A-Shiv] 1 tab PO DAILY Polyethylene Glycol 3350 [MiraLAX] 17 gm PO DAILY 05/05/19 07:33 Small Bowel w Serial Film [CR] Routine 05/05/19 07:34 NG Tube Placement [CR] Stat 05/05/19 08:21 Abdomen 1V Flat [CR] Routine 05/05/19 08:23 Nasogastric Tube Management [Gastrointestinal Tube Mgmt] [RC] ASDIRECTED 05/05/19 09:02 Patient Status [ADT] Routine 05/05/19 09:15 Sodium Chloride 0.9% @ 100 MLS/HR(1,000ml) Sodium Chloride 0.9% [Normal Saline] 1,000 ml IV ASDIRECTED 05/05/19 Breakfast NPO Now [Nothing per Oral Now Diet] [DIET] - Plan Plan:: Patient will get a Gastrografin Small bowel follow through today. If contrast reaches the colon will hold off on surgery. If the contrast doesnt reach the colon today will need to discuss ex lap with lysis of adhesions tomorrow. IVF to be switched to NS today.
[2019-05-05] MEDS ORDERED: Sodium Chloride 0.9% 1,000 ML IV SCH (09:15)
[2019-05-05] MEDS ORDERED: Pantoprazole 40 MG in Sodium Chloride 0.9% 100 ML IVPUSH SCH (09:15)
[2019-05-05] MEDS: Multivitamin Tab PO SCH (09:27)
[2019-05-05] MEDS: Polyethylene Glycol 3350 Powder 17 GM Packet PO SCH (09:27)
[2019-05-05] MEDS: Enoxaparin 40 MG/0.4 ML Syringe SUBCUT SCH (09:51)
[2019-05-05] MEDS: Pantoprazole 40 MG in Sodium Chloride 0.9% 10 ML IVPUSH SCH (09:59)
[2019-05-05] MEDS: HYDROmorphone 1 MG/ML Syringe IVPUSH PRN (13:11)
--- NOTE | 2019-05-05 13:40 | PCM.PREANE ---
Preanesthetic Assessment - Anesthesia/Transfusion/Family Hx Anesthesia History: Prior Anesthesia Without Reaction Family History of Anesthesia Reaction: No Transfusion History: No Prior Transfusion(s) Intubation History: Unknown - Review of Systems General: No Symptoms Pulmonary: No Symptoms Cardiovascular: No Symptoms Gastrointestinal: Abdominal Pain, Other (signs of obstruction) Neurological: No Symptoms Other: Reports: None - Physical Assessment O2 Sat by Pulse Oximetry: 96 Respiratory Rate: 18 Vital Signs: Last Vital Signs Temp 36.4 C 05/05/19 11:00 Pulse 78 05/05/19 11:00 Resp 18 05/05/19 11:00 BP 127/83 05/05/19 11:00 Pulse Ox 96 05/05/19 11:00 Height: 5 ft 7 in Weight: 60.328 kg ASA Class: 2E Mental Status: Alert & Oriented x3 Airway Class: Mallampati = 2 Dentition: Reports: Normal Dentition Thyro-Mental Finger Breadths: 3 Mouth Opening Finger Breadths: 3 ROM/Head Extension: Full Lungs: Clear to Auscultation, Normal Respiratory Effort Cardiovascular: Regular Rate, Regular Rhythm - Lab Values: Laboratory Last Values WBC 8.51 K/uL (4.0-11.0) 05/05/19 05:33 RBC 5.34 M/uL (4.50-5.90) 05/05/19 05:33 Hgb 15.3 g/dL (13.0-17.0) 05/05/19 05:33 Hct 43.4 % (38.0-50.0) 05/05/19 05:33 MCV 81.3 fL (80.0-98.0) 05/05/19 05:33 MCH 28.7 pg (27.0-32.0) 05/05/19 05:33 MCHC 35.3 g/dL (31.0-37.0) 05/05/19 05:33 RDW Std Deviation 38.7 fl (28.0-62.0) 05/05/19 05:33 RDW Coeff of Paul 13 % (11.0-15.0) 05/05/19 05:33 Plt Count 334 K/uL (150-400) 05/05/19 05:33 MPV 10.60 fL (7.40-12.00) 05/05/19 05:33 Neut % (Auto) 55.1 % (48.0-80.0) 05/03/19 05:48 Lymph % (Auto) 30.6 % (16.0-40.0) 05/03/19 05:48 [place] % (Auto) 10.0 % (0.0-15.0) 05/03/19 05:48 Eos % (Auto) 4.2 % (0.0-7.0) 05/03/19 05:48 Baso % (Auto) 0.1 % (0.0-1.5) 05/03/19 05:48 Neut # (Auto) 5.5 K/uL (1.4-5.7) 05/03/19 05:48 Lymph # (Auto) 3.1 K/uL (0.6-2.4) H 05/03/19 05:48 [place] # (Auto) 1.0 K/uL (0.0-0.8) H 05/03/19 05:48 Eos # (Auto) 0.4 K/uL (0.0-0.7) 05/03/19 05:48 Baso # (Auto) 0.0 K/uL (0.0-0.1) 05/03/19 05:48 Nucleated RBC % 0.0 /100WBC 05/05/19 05:33 Nucleated RBCs # 0 K/uL 05/05/19 05:33 Lactate 1.4 mmol/L (0.20-2.00) 05/02/19 22:15 Sodium 132 mmol/L (136-148) L 05/05/19 05:33 Potassium 3.9 mmol/L (3.5-5.1) 05/05/19 05:33 Chloride 98 mmol/L (98-107) 05/05/19 05:33 Carbon Dioxide 25.0 mmol/L (21.0-32.0) 05/05/19 05:33 BUN 13 mg/dL (7.0-18.0) 05/05/19 05:33 Creatinine 0.8 mg/dL (0.8-1.3) 05/05/19 05:33 Est Cr Clr Drug Dosing 123.59 mL/min 05/05/19 05:33 Estimated GFR (MDRD) > 60.0 ml/min 05/05/19 05:33 Glucose 79 mg/dL (74-106) 05/05/19 05:33 Calcium 8.7 mg/dL (8.5-10.1) 05/05/19 05:33 Phosphorus 4.6 mg/dL (2.6-4.7) 05/03/19 05:48 Magnesium 2.0 mg/dL (1.8-2.4) 05/03/19 05:48 Total Bilirubin 1.8 mg/dL (0.2-1.0) H 05/05/19 05:33 AST 11 IU/L (15-37) L 05/05/19 05:33 ALT 15 IU/L (14-63) 05/05/19 05:33 Alkaline Phosphatase 49 U/L (46-116) 05/05/19 05:33 Total Protein 6.9 g/dL (6.4-8.2) 05/05/19 05:33 Albumin 3.2 g/dL (3.4-5.0) L 05/05/19 05:33 Globulin 3.7 g/dL (2.6-4.0) 05/05/19 05:33 Albumin/Globulin Ratio 0.9 (0.9-1.6) 05/05/19 05:33 Urine Color YELLOW 05/02/19 22:06 Urine Appearance CLEAR 05/02/19 22:06 Urine pH 6.0 (5.0-8.0) 05/02/19 22:06 Ur Specific [place] 1.025 (1.001-1.035) 05/02/19 22:06 Urine Protein 30 mg/dL (NEGATIVE) H 05/02/19 22:06 Urine Glucose (UA) NEGATIVE mg/dL (NEGATIVE) 05/02/19 22:06 Urine Ketones 40 mg/dL (NEGATIVE) H 05/02/19 22:06 Urine Occult Blood NEGATIVE (NEGATIVE) 05/02/19 22:06 Urine Nitrite NEGATIVE (NEGATIVE) 05/02/19 22:06 Urine Bilirubin MODERATE (NEGATIVE) H 05/02/19 22:06 Urine Ictotest NEGATIVE 05/02/19 22:06 Urine Urobilinogen 0.2 EU/dL (<2.0) 05/02/19 22:06 Ur Leukocyte Esterase NEGATIVE (NEGATIVE) 05/02/19 22:06 Urine RBC 0-1 (0-2/HPF) 05/02/19 22:06 Urine WBC 0-1 (0-5/HPF) 05/02/19 22:06 Ur Epithelial Cells RARE (NONE-FEW) 05/02/19 22:06 Urine Bacteria RARE (NEGATIVE) 05/02/19 22:06 - Allergies Allergies/Adverse Reactions: Allergies Allergy/AdvReac Type Severity Reaction Status Date / Time No Known Allergies Allergy Verified 05/03/19 02:12 - Blood Blood Available: No - Anesthesia Plan Pre-Op Medication Ordered: None - Acknowledgements Anesthesia Type Planned: General Anesthesia Pt an Appropriate Candidate for the Planned Anesthesia: Yes Alternatives and Risks of Anesthesia Discussed w Pt/Guardian: Yes Pt/Guardian Understands and Agrees with Anesthesia Plan: Yes PreAnesthesia Questionnaire - Past Health History Medical/Surgical History: Denies Medical/Surgical History Gastrointestinal History: Reports: Other (See Below) Other Gastrointestinal History: abdominal surgery as child in [place], patient is unsure what the surgery was. Psychiatric History: Reports: None - Infectious Disease History Infectious Disease History: Reports: None - Past Surgical History GI Surgical History: Reports: Other (See Below) (exploratory laparotomy at age 9 - reason unknown) - SUBSTANCE USE Smoking Status *Q: Never Smoker Second Hand Smoke Exposure: No Recreational Drug Use History: No - HOME MEDS Home Medications: Home Meds . [No Known Home Meds] 05/02/19 [History] - CURRENT (IN HOUSE) MEDS Current Meds: Current Medications Diphenhydramine HCl (Benadryl) 25 mg IVPUSH Q4H PRN PRN Reason: Itching Enoxaparin Sodium (Lovenox) 40 mg SUBCUT Q24H PENDING SALE TO [facility] Last Admin: 05/05/19 09:51 Dose: 40 mg Hydromorphone HCl (Dilaudid) 0.5 mg IVPUSH Q1H PRN PRN Reason: Pain (severe 7-10) Last Admin: 05/05/19 13:11 Dose: 0.5 mg Sodium Chloride (Normal Saline) 1,000 mls @ 100 mls/hr IV ASDIRECTED PENDING SALE TO [facility] Last Admin: 05/05/19 09:27 Dose: 100 mls/hr Pantoprazole Sodium 40 mg/ (Sodium Chloride) 10 mls @ 300 mls/hr IVPUSH DAILY PENDING SALE TO [facility] Last Admin: 05/05/19 09:59 Dose: 300 mls/hr Multivitamins/Minerals/Vitamin C (Tab-A-Shiv) 1 tab PO DAILY PENDING SALE TO [facility] Last Admin: 05/05/19 09:27 Dose: Not Given Ondansetron HCl (Zofran) 4 mg IVPUSH Q6H PRN PRN Reason: Nausea/Vomiting Last Admin: 05/05/19 11:26 Dose: 4 mg Polyethylene Glycol (Miralax) 17 gm PO DAILY PENDING SALE TO [facility] Last Admin: 05/05/19 09:27 Dose: Not Given Promethazine HCl (Phenergan) 12.5 mg IM Q6H PRN PRN Reason: Nausea Sodium Chloride (Saline Flush) 10 ml FLUSH ASDIRECTED PRN PRN Reason: Keep Vein Open Sodium Chloride (Saline Flush) 2.5 ml FLUSH ASDIRECTED PRN PRN Reason: Keep Vein Open Sodium Chloride (Normal Saline) 10 ml IV ASDIRECTED PRN PRN Reason: IV Use Discontinued Medications Hydromorphone HCl (Dilaudid) 0.5 mg IVPUSH Q1H PRN PRN Reason: Pain (severe 7-10) Sodium Chloride (Normal Saline) 1,000 mls @ 999 mls/hr IV STAT ONE Stop: 05/02/19 23:03 Last Admin: 05/02/19 22:15 Dose: 999 mls/hr Lactated Ringer's (Ringers, Lactated) 1,000 mls @ 125 mls/hr IV ASDIRECTED PENDING SALE TO [facility] Last Admin: 05/05/19 02:49 Dose: 125 mls/hr Lactated Ringer's (Ringers, Lactated) 1,000 mls @ 999 mls/hr IV .BOLUS PENDING SALE TO [facility] Last Admin: 05/03/19 08:59 Dose: 999 mls/hr Magnesium Sulfate 2 gm/ Premix 50 mls @ 50 mls/hr IV ONETIME ONE Stop: 05/03/19 09:35 Last Admin: 05/03/19 09:11 Dose: 50 mls/hr Pantoprazole Sodium 40 mg/ (Sodium Chloride) 100 mls @ 10 mls/hr IVPUSH DAILY PENDING SALE TO [facility] Last Admin: 05/05/19 10:28 Dose: Not Given Iopamidol (Isovue-370 (76%)) 100 ml IVPUSH ONETIME ONE Stop: 05/02/19 23:00 Last Admin: 05/02/19 23:11 Dose: 100 ml Ketorolac Tromethamine (Toradol) 30 mg IVPUSH ONETIME ONE Stop: 05/02/19 23:40 Last Admin: 05/02/19 23:53 Dose: 30 mg Ketorolac Tromethamine (Toradol) 10 mg PO Q6H PRN PRN Reason: Pain Stop: 05/09/19 09:15 Tramadol HCl (Ultram) 50 mg PO Q4H PRN PRN Reason: Pain Last Admin: 05/04/19 18:24 Dose: 50 mg
--- NOTE | 2019-05-05 13:51 | PCM.SN ---
- Free Text/Narrative Note: Patient had an NG placed. Gastrografin was then placed into the stomach via this. He started vomiting afterwards. His NG was placed to intermittent suction and was putting out bilious gastric output. The abdominal films show that the patients small bowel is grossly distended and the dye is not going into the small intestines. I discussed this with the radiologist who feels he may have a high grade obstruction likely due to adhesions. I consented the patient for an exploratory laparotomy, lysis of adhesions, possible bowel resection and possible ostomy given these findings. We discussed the expected perioperative course and risks including bleeding, infection or damage to surrounding structures. He verbalized understanding and wishes to proceed.
[2019-05-05] MEDS ORDERED: Lidocaine 2% 5 ML SDV ONE (14:45)
[2019-05-05] MEDS ORDERED: Ondansetron 4 MG/2 ML SDV ONE (14:45)
[2019-05-05] MEDS ORDERED: Propofol 200 MG/20 ML SDV ONE (14:45)
[2019-05-05] MEDS ORDERED: Midazolam 1 MG/ML 2 ML SDV ONE (14:46)
[2019-05-05] MEDS ORDERED: Rocuronium 100 MG/10 ML Syringe ONE (14:46)
[2019-05-05] MEDS ORDERED: fentaNYL 250 MCG/5 ML SDV ONE (14:46)
[2019-05-05] MEDS ORDERED: Bupivacaine 0.5% 30 ML SDV ONE (14:53)
[2019-05-05] MEDS ORDERED: ceFAZolin 1 GM Vial ONE ×2 (14:53→16:50)
--- NOTE | 2019-05-05 15:26 | CR ---
EXAMINATION: Small bowel series HISTORY: Obstruction COMPARISON: CT dated 05/02/2019 TECHNIQUE: AP views of the abdomen obtained before and following the injection of 50/50 Gastrografin through the NG tube. FINDINGS: Additional abdominal film demonstrates an endogastric tube with tip in good position. Multiple dilated loops of small bowel are noted. Following the administration of Gastrografin the patient vomited at approximately the 90 minute alicia. The majority of the Gastrografin was passed cleared with minimal movement of the Gastrografin into the small bowel. Persistent dilated loops of small bowel persist throughout the examination. IMPRESSION: 1. Incomplete small bowel series due to vomiting. 2. The dilated small bowel however suggests a severe mechanical obstruction.
[2019-05-05] MEDS ORDERED: Sodium Chloride 0.9% 20 ML ONE (15:57)
[2019-05-05] MEDS ORDERED: cefOXitin 1 GM Vial ONE (15:57)
--- NOTE | 2019-05-05 17:28 | PCM.OPNOTE ---
<Jennifer Roman - Last Filed: 05/05/19 17:25> - General Post-Op/Procedure Note Date of Surgery/Procedure: 05/05/19 Operative Procedure(s): exploratory laparotomy Findings: Meckel's diverticulum, adhesion, internal hernia Pre Op Diagnosis: SBO Post-Op Diagnosis: Meckel's diverticulum, bowel adhesions, internal hernia Anesthesia Technique: General ET Tube Primary Surgeon: Meena Laughlin Secondary Surgeon: Lorenzo Bhatt Pathology: meckel's diverticulum Fluid Replacement, Intraop: 1,500 Output, Urine Amount: 450 EBL in mLs: 10 Condition: Stable Free Text/Narrative:: Intake & Output 05/05/19 05/05/19 05/05/19 06:59 14:59 22:59 Intake Total 1354 832 0 Output Total 900 1450 Balance 454 832 -1450 <Meena Laughlin - Last Filed: 05/05/19 17:33> - General Post-Op/Procedure Note Post-Op Diagnosis: Meckels diverticulum adhesed to the omentum causing an internal hernia. Multiple intra-abdominal adhesions. no evidence of an appendix. Free Text/Narrative:: Intake & Output 05/05/19 05/05/19 05/05/19 06:59 14:59 22:59 Intake Total 5509 028 9276 Output Total 900 1900 Balance 454 832 -400
[2019-05-05] MEDS ORDERED: 50% Dextrose in Water 50 ML Syringe IVPUSH PRN (17:48)
[2019-05-05] MEDS ORDERED: Albuterol 0.083% 2.5 MG/3 ML Neb Soln NEB PRN (17:48)
[2019-05-05] MEDS ORDERED: EPINEPHrine 1:10,000 1 MG/10 ML Syringe IVPUSH PRN (17:48)
[2019-05-05] MEDS ORDERED: Naloxone 0.4 MG/ML Syringe IVPUSH PRN (17:48)
[2019-05-05] MEDS ORDERED: fentaNYL 100 MCG/2 ML SDV IVPUSH PRN (17:48)
[2019-05-05] MEDS ORDERED: Atropine 0.1 MG/ML 10 ML Syringe IVPUSH PRN ×2 (17:48)
[2019-05-05] MEDS: fentaNYL 100 MCG/2 ML SDV ONE ×2 (17:50→18:50)
[2019-05-05] MEDS ORDERED: Ketorolac 10 MG Tab PO SCH (18:00)
[2019-05-05] MEDS: Morphine PF 30 MG/30 ML PCA Vial IV SCH (18:37)
--- NOTE | 2019-05-05 18:45 | PCM.POSTAN ---
POST ANESTHESIA ASSESSMENT - MENTAL STATUS Mental Status: Alert, Oriented - VITAL SIGNS Pulse Rate: 78 SaO2: 100 (2LPM) Resp Rate: 10 Blood Pressure: 133/90 - RESPIRATORY Respiratory Status: Respiratory Rate WNL, Airway Patent, O2 Saturation Stable, Supplemental Oxygen - CARDIOVASCULAR CV Status: Pulse Rate WNL, Blood Pressure Stable - GASTROINTESTINAL GI Status: No Symptoms - PAIN Pain Score: 2 - POST OP HYDRATION Hydration Status: Adequate & Stable
[2019-05-05] MEDS: Ketorolac 30 MG/ML SDV IVPUSH SCH (20:19)
[2019-05-05] MEDS: Dextrose 5%-0.9% NaCl with KCl 1,000 ML IV SCH (20:44)
--- NOTE | 2019-05-06 00:29 | OR ---
SURGEON: MEENA LAUGHLIN MD DATE OF PROCEDURE: 05/03/2019 PREOPERATIVE DIAGNOSIS: Small-bowel obstruction. POSTOPERATIVE DIAGNOSES: 1. Meckel's diverticulum. 2. Intraabdominal adhesions. 3. Internal hernia. PROCEDURE PERFORMED: Exploratory laparotomy with lysis of adhesions, Meckel's diverticulectomy. PRIMARY SURGEON: Meena Laughlin MD SECONDARY SURGEON: Lorenzo Bhatt M.D. SOFTWARE QUALITY ASSURANCE ANALYST: Jennifer Roman DO. FLUIDS: 1300 mL crystalloid. ESTIMATED BLOOD LOSS: 10 mL. URINE OUTPUT: 450 mL. FINDINGS: Meckel's diverticula, which was adhered to the omentum and twisted around the mesentery of the distal 1/3 of the small bowel. Multiple intraabdominal adhesions along the small bowel. COMPLICATIONS: None. INDICATIONS: The patient is a 24-year-old male, who presented 2 days ago with a small-bowel obstruction. The patient was monitored conservatively on the floor, but had increasing abdominal pain and distention. I would attempt to do a small-bowel follow-through, but was unable to do so. The decision was made to proceed with exploratory laparotomy. I explained the procedure to the patient. I explained multiple different scenarios including the possibility of lysis of adhesions, small bowel resection, appendectomy, or even colostomy creation. The patient verbalized understanding and wishes to proceed. PROCEDURE IN DETAIL: The patient was brought into the OR and placed on the OR table in supine position. A time-out was completed verifying the patient's name, age, date of , allergies, and procedure to be performed. General endotracheal anesthesia was induced. The abdomen was prepped and draped in usual standard fashion. The patient's previous ex lap scar was reopened using a 10 blade. Cautery was then used to dissect down to the level of the fascia. The fascia was elevated with Bette's and incised sharply with the Metzenbaum scissors. Entry into the abdomen was identified. I then placed a finger underneath the fascia and used cautery to open it both superiorly and inferiorly. No damage to surrounding structure was noted upon entry. The incision was protected with moistened laps and towels. The intestines were eviscerated on to the field. His proximal small bowel was grossly distended and had multiple filmy adhesions. Once we reached the distal small bowel, we noticed a structure twisting around the base of the mesentery. This had caused an internal hernia. Using a Metzenbaum scissors, we took down adhesions around this structure. We then clamped either side of it and used a Metzenbaum scissors to ligate it. This reduced the hernia. There appear to be a piece of omentum adhered to what appeared to be the appendix. We clamped and tied this piece of omentum and passed it off the field. We then followed the tubular like structure down to the bowel. It appeared to be inserting on the what appeared to be the colon however there were adhesions around this. We clamped the structure just above its insertion point on the bowel and ligated it with a 2-0 silk. It was then transected distal to this using a #10 blade and passed off the field. We then inverted the stump with a 3-0 silk purse string suture. The specimen was then sent to pathology. We then ran the bowel from the ligament of Treitz down to the cecum. There were multiple adhesions not to the abdominal wall, but to the intestines themselves. None of these appeared to be narrowing the lumen of the small bowel, until we reached the right lower quadrant. We then started lysing adhesions carefully using a Metzenbaum scissors. Once these were opened up, the distal bowel that had previously been decompressed, started filling up with proximal bowel contents. Upon closer inspection and after lysis of the distal small bowel adhesions, we found our resection line to actually be on the small intestine as opposed to the colon. We took down our previous silk ties and discovered that the patient actually had a Meckel's diverticulum and this is what had caused the internal hernia. We then kept our original proximal 2-[address] and invaginated the stump of the diverticula using interrupted 3-0 silk sutures. We investigated the terminal ilium and cecum. There was no appendix. His previous surgery was likely an appendectomy. We ran the bowel again and there appeared to be no areas of narrowing or obstruction. The abdomen was irrigated with Ancef and normal saline mix and suctioned out. The abdominal fascia was then closed with a running looped 1-0 PDS suture. The subcutaneous fat layer was anesthetized with 0.5% Marcaine plain. The skin was closed with lizbeth. Sterile dressings were applied. All counts were complete and correct at the end of the case. The patient tolerated the procedure well and was taken to PACU in stable condition. YAJAIRA / FALGUNI /[id number]
[2019-05-06] MEDS: Ketorolac 30 MG/ML SDV IVPUSH SCH ×4 (02:10→20:10)
[2019-05-06 05:49] LABS: BLOOD UREA NITROGEN,BUN 14 mg/dL (7.0-18.0); CHLORIDE,CL 100 mmol/L (98-107); GLUCOSE RANDOM 141 mg/dL (74-106); POTASSIUM,K 4.1 mmol/L (3.5-5.1); SODIUM,NA 132 mmol/L (136-148)
[2019-05-06] MEDS: Dextrose 5%-0.9% NaCl with KCl 1,000 ML IV SCH ×3 (05:56→18:59)
[2019-05-06] MEDS ORDERED: Magnesium Sulfate/Water 4 GM in Premix Bag 1 BAG IV ONE (07:25)
[2019-05-06] MEDS: Pantoprazole 40 MG in Sodium Chloride 0.9% 10 ML IVPUSH SCH (09:12)
[2019-05-06] MEDS: Polyethylene Glycol 3350 Powder 17 GM Packet PO SCH (09:13)
[2019-05-06] MEDS: Multivitamin Tab PO SCH (09:13)
[2019-05-06] MEDS: Enoxaparin 40 MG/0.4 ML Syringe SUBCUT SCH (09:20)
[2019-05-06] MEDS: Morphine PF 30 MG/30 ML PCA Vial IV SCH (10:14)
--- NOTE | 2019-05-06 14:17 | PCM.SURGPN ---
- General Info Date of Service: 05/06/19 Date of Surgery/Procedure: 05/05/19 POD#: 1 Functional Status: Reports: Pain Controlled - Review of Systems General: Reports: No Symptoms HEENT: Reports: No Symptoms Pulmonary: Reports: No Symptoms Cardiovascular: Reports: No Symptoms Gastrointestinal: Reports: Abdominal Pain (controlled with ADDICTION MEDICINE PHYSICIAN ), Other ( Distension) Genitourinary: Reports: No Symptoms Musculoskeletal: Reports: No Symptoms Skin: Reports: No Symptoms - Patient Data Vitals - Most Recent: Last Vital Signs Temp 36.8 C 05/06/19 12:00 Pulse 88 05/06/19 12:00 Resp 12 05/06/19 12:00 BP 107/65 05/06/19 12:00 Pulse Ox 96 05/06/19 12:00 Weight - Most Recent: 60.328 kg I&O - Last 24 Hours: Intake & Output 05/05/19 05/06/19 05/06/19 22:59 06:59 14:59 Intake Total 3000 861 0 Output Total 2750 465 335 Balance 250 396 -335 Lab Results Last 24 Hrs: Laboratory Results - last 24 hr 05/05/19 05/05/19 05/05/19 Range/Units 20:18 21:42 23:47 WBC (4.0-11.0) K/uL RBC (4.50-5.90) M/uL Hgb (13.0-17.0) g/dL Hct (38.0-50.0) % MCV (80.0-98.0) fL MCH (27.0-32.0) pg MCHC (31.0-37.0) g/dL RDW Std Deviation (28.0-62.0) fl RDW Coeff of Paul (11.0-15.0) % Plt Count (150-400) K/uL MPV (7.40-12.00) fL Nucleated RBC % /100WBC Nucleated RBCs # K/uL Sodium (136-148) mmol/L Potassium (3.5-5.1) mmol/L Chloride (98-107) mmol/L Carbon Dioxide (21.0-32.0) mmol/L BUN (7.0-18.0) mg/dL Creatinine (0.8-1.3) mg/dL Est Cr Clr Drug Dosing mL/min Estimated GFR (MDRD) ml/min Glucose (74-106) mg/dL POC Glucose 74 92 104 (60-110) mg/dL Calcium (8.5-10.1) mg/dL Phosphorus (2.6-4.7) mg/dL Magnesium (1.8-2.4) mg/dL Total Bilirubin (0.2-1.0) mg/dL AST (15-37) IU/L ALT (14-63) IU/L Alkaline Phosphatase (46-116) U/L Total Protein (6.4-8.2) g/dL Albumin (3.4-5.0) g/dL Globulin (2.6-4.0) g/dL Albumin/Globulin Ratio (0.9-1.6) 05/06/19 05/06/19 05/06/19 Range/Units 05:05 05:05 05:06 WBC 7.30 (4.0-11.0) K/uL RBC 5.52 (4.50-5.90) M/uL Hgb 16.0 (13.0-17.0) g/dL Hct 45.2 (38.0-50.0) % MCV 81.9 (80.0-98.0) fL MCH 29.0 (27.0-32.0) pg MCHC 35.4 (31.0-37.0) g/dL RDW Std Deviation 39.6 (28.0-62.0) fl RDW Coeff of Paul 13 (11.0-15.0) % Plt Count 353 (150-400) K/uL MPV 10.40 (7.40-12.00) fL Nucleated RBC % 0.0 /100WBC Nucleated RBCs # 0 K/uL Sodium 132 L (136-148) mmol/L Potassium 4.1 (3.5-5.1) mmol/L Chloride 100 (98-107) mmol/L Carbon Dioxide 26.0 (21.0-32.0) mmol/L BUN 14 (7.0-18.0) mg/dL Creatinine 0.8 (0.8-1.3) mg/dL Est Cr Clr Drug Dosing 123.59 mL/min Estimated GFR (MDRD) > 60.0 ml/min Glucose 141 H (74-106) mg/dL POC Glucose 128 H (60-110) mg/dL Calcium 7.9 L (8.5-10.1) mg/dL Phosphorus 3.2 (2.6-4.7) mg/dL Magnesium 1.6 L (1.8-2.4) mg/dL Total Bilirubin 1.3 H (0.2-1.0) mg/dL AST 13 L (15-37) IU/L ALT 12 L (14-63) IU/L Alkaline Phosphatase 42 L (46-116) U/L Total Protein 6.2 L (6.4-8.2) g/dL Albumin 2.8 L (3.4-5.0) g/dL Globulin 3.4 (2.6-4.0) g/dL Albumin/Globulin Ratio 0.8 L (0.9-1.6) Med Orders - Current: Current Medications Albuterol (Proventil Neb Soln) 2.5 mg NEB ONETIME PRN PRN Reason: Wheezing Atropine Sulfate (Atropine 0.1 Mg/Ml) 0.5 mg IVPUSH ASDIRECTED PRN PRN Reason: Hypo-perfusion Atropine Sulfate (Atropine 0.1 Mg/Ml) 1 mg IVPUSH ASDIRECTED PRN PRN Reason: Hypo-Perfusion Dextrose/Water (Dextrose 50% In Water) 50 ml IVPUSH ASDIRECTED PRN PRN Reason: Hypoglycemia Diphenhydramine HCl (Benadryl) 25 mg IVPUSH Q4H PRN PRN Reason: Itching Enoxaparin Sodium (Lovenox) 40 mg SUBCUT Q24H [facility] Last Admin: 05/06/19 09:20 Dose: 40 mg Epinephrine HCl (Epinephrine 1:10,000) 1 mg IVPUSH ASDIRECTED PRN PRN Reason: ACLS Guidelines Fentanyl (Sublimaze) 50 - 100 mcg IVPUSH Q5M PRN PRN Reason: Pain Pantoprazole Sodium 40 mg/ (Sodium Chloride) 10 mls @ 300 mls/hr IVPUSH DAILY [facility] Last Admin: 05/06/19 09:12 Dose: 300 mls/hr Potassium Chloride/Dextrose/Sod Cl (D5 Ns With 20 Meq Kcl) 1,000 mls @ 100 mls/ hr IV ASDIRECTED [facility] Last Admin: 05/06/19 05:56 Dose: 100 mls/hr Ketorolac Tromethamine (Toradol) 30 mg IVPUSH Q6H [facility] Stop: 05/10/19 19:54 Last Admin: 05/06/19 09:13 Dose: 30 mg Morphine Sulfate (Morphine [employer] 30 Mg In 30 Ml) 0 mg IV ASDIRECTED [facility]; Protocol Last Admin: 05/06/19 10:14 Dose: 30 mg Multivitamins/Minerals/Vitamin C (Tab-A-Shiv) 1 tab PO DAILY [facility] Last Admin: 05/06/19 09:13 Dose: Not Given Naloxone HCl (Narcan) 0.1 mg IVPUSH ASDIRECTED PRN PRN Reason: Respiratory Depression Ondansetron HCl (Zofran) 4 mg IVPUSH Q6H PRN PRN Reason: Nausea/Vomiting Last Admin: 05/05/19 11:26 Dose: 4 mg Polyethylene Glycol (Miralax) 17 gm PO DAILY [facility] Last Admin: 05/06/19 09:13 Dose: Not Given Promethazine HCl (Phenergan) 12.5 mg IM Q6H PRN PRN Reason: Nausea Sodium Chloride (Saline Flush) 10 ml FLUSH ASDIRECTED PRN PRN Reason: Keep Vein Open Sodium Chloride (Saline Flush) 2.5 ml FLUSH ASDIRECTED PRN PRN Reason: Keep Vein Open Sodium Chloride (Normal Saline) 10 ml IV ASDIRECTED PRN PRN Reason: IV Use Discontinued Medications Bupivacaine HCl (Marcaine 0.5%) Confirm Administered Dose 120 ml .ROUTE .STK- MED ONE Stop: 05/05/19 14:54 Cefazolin Sodium (Ancef) Confirm Administered Dose 1 gm .ROUTE .STK-MED ONE Stop: 05/05/19 14:54 Cefazolin Sodium (Ancef) Confirm Administered Dose 1 gm .ROUTE .STK-MED ONE Stop: 05/05/19 16:51 Cefoxitin Sodium (Mefoxin) Confirm Administered Dose 1 gm .ROUTE .STK-MED ONE Stop: 05/05/19 15:58 Fentanyl (Sublimaze) Confirm Administered Dose 250 mcg .ROUTE .STK-MED ONE Stop: 05/05/19 14:47 Fentanyl (Sublimaze) Confirm Administered Dose 100 mcg .ROUTE .STK-MED ONE Stop: 05/05/19 17:51 Last Admin: 05/05/19 18:50 Dose: 100 mcg Hydromorphone HCl (Dilaudid) 0.5 mg IVPUSH Q1H PRN PRN Reason: Pain (severe 7-10) Hydromorphone HCl (Dilaudid) 0.5 mg IVPUSH Q1H PRN PRN Reason: Pain (severe 7-10) Last Admin: 05/05/19 13:11 Dose: 0.5 mg Sodium Chloride (Normal Saline) 1,000 mls @ 999 mls/hr IV STAT ONE Stop: 05/02/19 23:03 Last Admin: 05/02/19 22:15 Dose: 999 mls/hr Lactated Ringer's (Ringers, Lactated) 1,000 mls @ 125 mls/hr IV ASDIRECTED [facility] Last Admin: 05/05/19 02:49 Dose: 125 mls/hr Lactated Ringer's (Ringers, Lactated) 1,000 mls @ 999 mls/hr IV .BOLUS [facility] Last Admin: 05/03/19 08:59 Dose: 999 mls/hr Magnesium Sulfate 2 gm/ Premix 50 mls @ 50 mls/hr IV ONETIME ONE Stop: 05/03/19 09:35 Last Admin: 05/03/19 09:11 Dose: 50 mls/hr Sodium Chloride (Normal Saline) 1,000 mls @ 100 mls/hr IV ASDIRECTED [facility] Last Admin: 05/05/19 09:27 Dose: 100 mls/hr Pantoprazole Sodium 40 mg/ (Sodium Chloride) 100 mls @ 10 mls/hr IVPUSH DAILY [facility] Last Admin: 05/05/19 10:28 Dose: Not Given Sodium Chloride (Normal Saline) Confirm Administered Dose 20 mls @ as directed .ROUTE .STK-MED ONE Stop: 05/05/19 15:58 Magnesium Sulfate 4 gm/ Premix 100 mls @ 50 mls/hr IV ONETIME ONE Stop: 05/06/19 09:24 Last Admin: 05/06/19 09:20 Dose: 50 mls/hr Iopamidol (Isovue-370 (76%)) 100 ml IVPUSH ONETIME ONE Stop: 05/02/19 23:00 Last Admin: 05/02/19 23:11 Dose: 100 ml Ketorolac Tromethamine (Toradol) 30 mg IVPUSH ONETIME ONE Stop: 05/02/19 23:40 Last Admin: 05/02/19 23:53 Dose: 30 mg Ketorolac Tromethamine (Toradol) 10 mg PO Q6H PRN PRN Reason: Pain Stop: 05/09/19 09:15 Ketorolac Tromethamine (Toradol) 10 mg PO Q6H [facility] Stop: 05/10/19 18:01 Last Admin: 05/06/19 09:30 Dose: Not Given Lidocaine (Xylocaine-Mpf 2%) Confirm Administered Dose 5 ml .ROUTE .STK-MED ONE Stop: 05/05/19 14:46 Midazolam HCl (Versed 1 Mg/Ml) Confirm Administered Dose 2 mg .ROUTE .STK-MED ONE Stop: 05/05/19 14:47 Ondansetron HCl (Zofran) Confirm Administered Dose 4 mg .ROUTE .STK-MED ONE Stop: 05/05/19 14:46 Propofol (Diprivan 20 Ml) Confirm Administered Dose 200 mg .ROUTE .STK-MED ONE Stop: 05/05/19 14:46 Rocuronium [place] (Zemuron) Confirm Administered Dose 100 mg .ROUTE .STK-MED ONE Stop: 05/05/19 14:47 Succinylcholine Chloride (Succinylcholine Chloride) Confirm Administered Dose 200 mg .ROUTE .STK-MED ONE Stop: 05/05/19 14:47 Tramadol HCl (Ultram) 50 mg PO Q4H PRN PRN Reason: Pain Last Admin: 05/04/19 18:24 Dose: 50 mg - Exam Wound/Incisions: Healing Well, Dressing Dry and Intact General: Alert, Oriented, Cooperative HEENT: Pupils Equal, Pupils Reactive Lungs: Clear to Auscultation, Normal Respiratory Effort Cardiovascular: Regular Rate, Regular Rhythm GI/Abdominal Exam: Soft, Distended, Tender (Tender along midline), Abnormal Bowel Sounds (hypoactive but present in all four quadrants ). No: Guarding, Rigid, Rebound Extremities: Normal Inspection - Problem List & Annotations (1) SBO (small bowel obstruction) SNOMED Code(s): 457735742 Code(s): K56.609 - UNSP INTESTNL OBST, UNSP TO PARTIAL VERSUS COMPLETE OBST Status: Acute Current Visit: Yes - Problem List Review Problem List Initiated/Reviewed/Updated: Yes - My Orders Last 24 Hours: Active Orders 24 hr Category Date Time Status Patient Status [ADT] Routine ADT 05/06/19 12:39 Active Transfer Patient (Change bed) [ADT] Routine ADT 05/06/19 12:39 Ordered Blood Glucose Check, Bedside [RC] Q6H Care 05/05/19 17:48 Active Oxygen Therapy [RC] PRN Care 05/05/19 17:48 Active CBC W/O DIFF,HEMOGRAM [HEME] AM Lab 05/07/19 05:11 Ordered CBC W/O DIFF,HEMOGRAM [HEME] AM Lab 05/08/19 05:11 Ordered CBC W/O DIFF,HEMOGRAM [HEME] AM Lab 05/09/19 05:11 Ordered CBC W/O DIFF,HEMOGRAM [HEME] AM Lab 05/10/19 05:11 Ordered CMP [COMPREHENSIVE METABOLIC PN,CMP] [CHEM] AM Lab 05/07/19 05:11 Ordered CMP [COMPREHENSIVE METABOLIC PN,CMP] [CHEM] AM Lab 05/08/19 05:11 Ordered CMP [COMPREHENSIVE METABOLIC PN,CMP] [CHEM] AM Lab 05/09/19 05:11 Ordered CMP [COMPREHENSIVE METABOLIC PN,CMP] [CHEM] AM Lab 05/10/19 05:11 Ordered MAGNESIUM [CHEM] AM Lab 05/07/19 05:11 Ordered MAGNESIUM [CHEM] AM Lab 05/08/19 05:11 Ordered MAGNESIUM [CHEM] AM Lab 05/09/19 05:11 Ordered MAGNESIUM [CHEM] AM Lab 05/10/19 05:11 Ordered PHOSPHORUS [CHEM] AM Lab 05/07/19 05:11 Ordered PHOSPHORUS [CHEM] AM Lab 05/08/19 05:11 Ordered PHOSPHORUS [CHEM] AM Lab 05/09/19 05:11 Ordered PHOSPHORUS [CHEM] AM Lab 05/10/19 05:11 Ordered Albuterol [Proventil Neb Soln] Med 05/05/19 17:48 Active 2.5 mg NEB ONETIME PRN Atropine [Atropine 0.1 MG/ML] Med 05/05/19 17:48 Active 0.5 mg IVPUSH ASDIRECTED PRN Atropine [Atropine 0.1 MG/ML] Med 05/05/19 17:48 Active 1 mg IVPUSH ASDIRECTED PRN Dextrose 5%-0.9% NaCl with KCl [D5 NS with 20 mEq KCl] Med 05/05/19 20:30 Active 1,000 ml IV ASDIRECTED Dextrose 50% in Water Med 05/05/19 17:48 Active 50 ml IVPUSH ASDIRECTED PRN EPINEPHrine [EPINEPHrine 1:10,000] Med 05/05/19 17:48 Active 1 mg IVPUSH ASDIRECTED PRN Ketorolac [Toradol] Med 05/05/19 20:00 Active 30 mg IVPUSH Q6H Morphine PF [Morphine ADDICTION MEDICINE PHYSICIAN 30 MG in 30 ML] Med 05/05/19 17:45 Active See Protocol IV ASDIRECTED Naloxone [Narcan] Med 05/05/19 17:48 Active 0.1 mg IVPUSH ASDIRECTED PRN fentaNYL [Sublimaze] Med 05/05/19 17:48 Active 50 - 100 mcg IVPUSH Q5M PRN Medication Orders Albuterol (Proventil Neb Soln) 2.5 mg NEB ONETIME PRN PRN Reason: Wheezing Atropine Sulfate (Atropine 0.1 Mg/Ml) 0.5 mg IVPUSH ASDIRECTED PRN PRN Reason: Hypo-perfusion Atropine Sulfate (Atropine 0.1 Mg/Ml) 1 mg IVPUSH ASDIRECTED PRN PRN Reason: Hypo-Perfusion Dextrose/Water (Dextrose 50% In Water) 50 ml IVPUSH ASDIRECTED PRN PRN Reason: Hypoglycemia Diphenhydramine HCl (Benadryl) 25 mg IVPUSH Q4H PRN PRN Reason: Itching Enoxaparin Sodium (Lovenox) 40 mg SUBCUT Q24H [facility] Last Admin: 05/06/19 09:20 Dose: 40 mg Admin: 05/05/19 09:51 Dose: 40 mg Epinephrine HCl (Epinephrine 1:10,000) 1 mg IVPUSH ASDIRECTED PRN PRN Reason: ACLS Guidelines Fentanyl (Sublimaze) 50 - 100 mcg IVPUSH Q5M PRN PRN Reason: Pain Pantoprazole Sodium 40 mg/ (Sodium Chloride) 10 mls @ 300 mls/hr IVPUSH DAILY [facility] Last Admin: 05/06/19 09:12 Dose: 300 mls/hr Infusion: 05/05/19 10:01 Dose: 300 mls/hr Admin: 05/05/19 09:59 Dose: 300 mls/hr Potassium Chloride/Dextrose/Sod Cl (D5 Ns With 20 Meq Kcl) 1,000 mls @ 100 mls/ hr IV ASDIRECTED [facility] Last Admin: 05/06/19 05:56 Dose: 100 mls/hr Infusion: 05/06/19 05:56 Dose: 100 mls/hr Admin: 05/05/19 20:44 Dose: 100 mls/hr Ketorolac Tromethamine (Toradol) 30 mg IVPUSH Q6H [facility] Stop: 05/10/19 19:54 Last Admin: 05/06/19 09:13 Dose: 30 mg Admin: 05/06/19 02:10 Dose: 30 mg Admin: 05/05/19 20:19 Dose: 30 mg Morphine Sulfate (Morphine [employer] 30 Mg In 30 Ml) 0 mg IV ASDIRECTED [facility]; Protocol Last Admin: 05/06/19 10:14 Dose: 30 mg Admin: 05/05/19 18:37 Dose: 30 mg Multivitamins/Minerals/Vitamin C (Tab-A-Shiv) 1 tab PO DAILY [facility] Last Admin: 05/06/19 09:13 Dose: Admin: 05/05/19 09:27 Dose: Admin: 05/04/19 09:53 Dose: 1 tab Naloxone HCl (Narcan) 0.1 mg IVPUSH ASDIRECTED PRN PRN Reason: Respiratory Depression Ondansetron HCl (Zofran) 4 mg IVPUSH Q6H PRN PRN Reason: Nausea/Vomiting Last Admin: 05/05/19 11:26 Dose: 4 mg Polyethylene Glycol (Miralax) 17 gm PO DAILY [facility] Last Admin: 05/06/19 09:13 Dose: Admin: 05/05/19 09:27 Dose: Admin: 05/04/19 09:52 Dose: 17 gm Promethazine HCl (Phenergan) 12.5 mg IM Q6H PRN PRN Reason: Nausea Sodium Chloride (Saline Flush) 10 ml FLUSH ASDIRECTED PRN PRN Reason: Keep Vein Open Sodium Chloride (Saline Flush) 2.5 ml FLUSH ASDIRECTED PRN PRN Reason: Keep Vein Open Sodium Chloride (Normal Saline) 10 ml IV ASDIRECTED PRN PRN Reason: IV Use - Plan Plan (Free Text/Narrative):: Patient is POD #1 from an exploratory laparotomy, lysis of adhesions and meckel' s diverticulectomy. Pain: Well controlled with scheduled toradol and morphine ADDICTION MEDICINE PHYSICIAN. CV: Vitals stable overnight. D/C cardiac monitoring. Pulm: Encouraged IS use and out of bed activity. Patient is splinting some with deep breathing. Sats normal on room air. GI: NG output bilious and still too high to clamp. Keep to low intermittent suction. IV protonix for GI prophylaxis. Bilirubin decreased today. Renal: Hyponatremic. D5 NS with 20mEq KCl @ 100ml/hr. Meng out. Bun/Cr WNL. Magnesium replaced today. ID: no need for antibiotics Heme: Hemoglobin stable. Lovenox 40mg q24hr and SCDs for DVT px. Transfer out of ICU and to floor today.
[2019-05-07] MEDS: Morphine PF 30 MG/30 ML PCA Vial IV SCH (00:58)
[2019-05-07] MEDS: Ketorolac 30 MG/ML SDV IVPUSH SCH ×4 (01:03→20:04)
[2019-05-07] MEDS: Dextrose 5%-0.9% NaCl with KCl 1,000 ML IV SCH ×2 (06:25→18:16)
[2019-05-07 06:53] LABS: BLOOD UREA NITROGEN,BUN 11 mg/dL (7.0-18.0); CARBON DIOXIDE,CO2 26.2 mmol/L (21.0-32.0); CHLORIDE,CL 103 mmol/L (98-107); GLUCOSE RANDOM 108 mg/dL (74-106); SODIUM,NA 135 mmol/L (136-148)
[2019-05-07] MEDS: Polyethylene Glycol 3350 Powder 17 GM Packet PO SCH (08:30)
[2019-05-07] MEDS: Multivitamin Tab PO SCH (08:31)
[2019-05-07] MEDS: Pantoprazole 40 MG in Sodium Chloride 0.9% 10 ML IVPUSH SCH (08:43)
[2019-05-07] MEDS: Enoxaparin 40 MG/0.4 ML Syringe SUBCUT SCH (08:45)
--- NOTE | 2019-05-07 09:03 | PCM.SURGPN ---
- General Info Date of Service: 05/07/19 Date of Surgery/Procedure: 05/05/19 POD#: 2 Admission Diagnosis/Problem: Small bowel obstruction Functional Status: Reports: Pain Controlled - Review of Systems General: Reports: No Symptoms HEENT: Reports: No Symptoms Pulmonary: Reports: No Symptoms Cardiovascular: Reports: No Symptoms Gastrointestinal: Denies: Abdominal Pain, Flatus Genitourinary: Reports: No Symptoms - Patient Data Vitals - Most Recent: Last Vital Signs Temp 36.3 C 05/07/19 07:43 Pulse 90 05/07/19 07:43 Resp 16 05/07/19 07:43 BP 108/68 05/07/19 07:43 Pulse Ox 97 05/07/19 07:43 Weight - Most Recent: 60.328 kg I&O - Last 24 Hours: Intake & Output 05/06/19 05/07/19 05/07/19 22:59 06:59 14:59 Intake Total 934 0 Output Total 260 160 Balance 674 -160 Lab Results Last 24 Hrs: Laboratory Results - last 24 hr 05/07/19 05/07/19 Range/Units 05:50 05:50 WBC 6.34 (4.0-11.0) K/uL RBC 4.89 (4.50-5.90) M/uL Hgb 14.3 (13.0-17.0) g/dL Hct 40.8 (38.0-50.0) % MCV 83.4 (80.0-98.0) fL MCH 29.2 (27.0-32.0) pg MCHC 35.0 (31.0-37.0) g/dL RDW Std Deviation 40.8 (28.0-62.0) fl RDW Coeff of Paul 14 (11.0-15.0) % Plt Count 302 (150-400) K/uL MPV 10.40 (7.40-12.00) fL Nucleated RBC % 0.0 /100WBC Nucleated RBCs # 0 K/uL Sodium 135 L (136-148) mmol/L Potassium 4.0 (3.5-5.1) mmol/L Chloride 103 (98-107) mmol/L Carbon Dioxide 26.2 (21.0-32.0) mmol/L BUN 11 (7.0-18.0) mg/dL Creatinine 0.9 (0.8-1.3) mg/dL Est Cr Clr Drug Dosing 109.86 mL/min Estimated GFR (MDRD) > 60.0 ml/min Glucose 108 H (74-106) mg/dL Calcium 8.4 L (8.5-10.1) mg/dL Phosphorus 2.4 L (2.6-4.7) mg/dL Magnesium 2.2 (1.8-2.4) mg/dL Total Bilirubin 1.1 H (0.2-1.0) mg/dL AST 13 L (15-37) IU/L ALT 11 L (14-63) IU/L Alkaline Phosphatase 44 L (46-116) U/L Total Protein 6.4 (6.4-8.2) g/dL Albumin 2.7 L (3.4-5.0) g/dL Globulin 3.7 (2.6-4.0) g/dL Albumin/Globulin Ratio 0.7 L (0.9-1.6) Med Orders - Current: Current Medications Diphenhydramine HCl (Benadryl) 25 mg IVPUSH Q4H PRN PRN Reason: Itching Enoxaparin Sodium (Lovenox) 40 mg SUBCUT Q24H [facility] Last Admin: 05/07/19 08:45 Dose: 40 mg Pantoprazole Sodium 40 mg/ (Sodium Chloride) 10 mls @ 300 mls/hr IVPUSH DAILY [facility] Last Admin: 05/07/19 08:43 Dose: 300 mls/hr Potassium Chloride/Dextrose/Sod Cl (D5 Ns With 20 Meq Kcl) 1,000 mls @ 75 mls/ hr IV ASDIRECTED [facility] Last Admin: 05/07/19 06:25 Dose: 75 mls/hr Ketorolac Tromethamine (Toradol) 30 mg IVPUSH Q6H [facility] Stop: 05/10/19 19:54 Last Admin: 05/07/19 08:44 Dose: 30 mg Morphine Sulfate (Morphine Manager Domestic 30 Mg In 30 Ml) 0 mg IV ASDIRECTED [facility]; Protocol Last Admin: 05/07/19 00:58 Dose: 30 mg Multivitamins/Minerals/Vitamin C (Tab-A-Shiv) 1 tab PO DAILY [facility] Last Admin: 05/07/19 08:31 Dose: Not Given Ondansetron HCl (Zofran) 4 mg IVPUSH Q6H PRN PRN Reason: Nausea/Vomiting Last Admin: 05/05/19 11:26 Dose: 4 mg Polyethylene Glycol (Miralax) 17 gm PO DAILY [facility] Last Admin: 05/07/19 08:30 Dose: Not Given Promethazine HCl (Phenergan) 12.5 mg IM Q6H PRN PRN Reason: Nausea Sodium Chloride (Saline Flush) 10 ml FLUSH ASDIRECTED PRN PRN Reason: Keep Vein Open Sodium Chloride (Saline Flush) 2.5 ml FLUSH ASDIRECTED PRN PRN Reason: Keep Vein Open Sodium Chloride (Normal Saline) 10 ml IV ASDIRECTED PRN PRN Reason: IV Use Discontinued Medications Albuterol (Proventil Neb Soln) 2.5 mg NEB ONETIME PRN PRN Reason: Wheezing Atropine Sulfate (Atropine 0.1 Mg/Ml) 0.5 mg IVPUSH ASDIRECTED PRN PRN Reason: Hypo-perfusion Atropine Sulfate (Atropine 0.1 Mg/Ml) 1 mg IVPUSH ASDIRECTED PRN PRN Reason: Hypo-Perfusion Bupivacaine HCl (Marcaine 0.5%) Confirm Administered Dose 120 ml .ROUTE .STK- MED ONE Stop: 05/05/19 14:54 Cefazolin Sodium (Ancef) Confirm Administered Dose 1 gm .ROUTE .STK-MED ONE Stop: 05/05/19 14:54 Cefazolin Sodium (Ancef) Confirm Administered Dose 1 gm .ROUTE .STK-MED ONE Stop: 05/05/19 16:51 Cefoxitin Sodium (Mefoxin) Confirm Administered Dose 1 gm .ROUTE .STK-MED ONE Stop: 05/05/19 15:58 Dextrose/Water (Dextrose 50% In Water) 50 ml IVPUSH ASDIRECTED PRN PRN Reason: Hypoglycemia Epinephrine HCl (Epinephrine 1:10,000) 1 mg IVPUSH ASDIRECTED PRN PRN Reason: ACLS Guidelines Fentanyl (Sublimaze) Confirm Administered Dose 250 mcg .ROUTE .STK-MED ONE Stop: 05/05/19 14:47 Fentanyl (Sublimaze) 50 - 100 mcg IVPUSH Q5M PRN PRN Reason: Pain Fentanyl (Sublimaze) Confirm Administered Dose 100 mcg .ROUTE .STK-MED ONE Stop: 05/05/19 17:51 Last Admin: 05/05/19 18:50 Dose: 100 mcg Hydromorphone HCl (Dilaudid) 0.5 mg IVPUSH Q1H PRN PRN Reason: Pain (severe 7-10) Hydromorphone HCl (Dilaudid) 0.5 mg IVPUSH Q1H PRN PRN Reason: Pain (severe 7-10) Last Admin: 05/05/19 13:11 Dose: 0.5 mg Sodium Chloride (Normal Saline) 1,000 mls @ 999 mls/hr IV STAT ONE Stop: 05/02/19 23:03 Last Admin: 05/02/19 22:15 Dose: 999 mls/hr Lactated Ringer's (Ringers, Lactated) 1,000 mls @ 125 mls/hr IV ASDIRECTED [facility] Last Admin: 05/05/19 02:49 Dose: 125 mls/hr Lactated Ringer's (Ringers, Lactated) 1,000 mls @ 999 mls/hr IV .BOLUS [facility] Last Admin: 05/03/19 08:59 Dose: 999 mls/hr Magnesium Sulfate 2 gm/ Premix 50 mls @ 50 mls/hr IV ONETIME ONE Stop: 05/03/19 09:35 Last Admin: 05/03/19 09:11 Dose: 50 mls/hr Sodium Chloride (Normal Saline) 1,000 mls @ 100 mls/hr IV ASDIRECTED [facility] Last Admin: 05/05/19 09:27 Dose: 100 mls/hr Pantoprazole Sodium 40 mg/ (Sodium Chloride) 100 mls @ 10 mls/hr IVPUSH DAILY [facility] Last Admin: 05/05/19 10:28 Dose: Not Given Sodium Chloride (Normal Saline) Confirm Administered Dose 20 mls @ as directed .ROUTE .STK-MED ONE Stop: 05/05/19 15:58 Potassium Chloride/Dextrose/Sod Cl (D5 Ns With 20 Meq Kcl) 1,000 mls @ 100 mls/ hr IV ASDIRECTED [facility] Last Admin: 05/06/19 05:56 Dose: 100 mls/hr Magnesium Sulfate 4 gm/ Premix 100 mls @ 50 mls/hr IV ONETIME ONE Stop: 05/06/19 09:24 Last Admin: 05/06/19 09:20 Dose: 50 mls/hr Iopamidol (Isovue-370 (76%)) 100 ml IVPUSH ONETIME ONE Stop: 05/02/19 23:00 Last Admin: 05/02/19 23:11 Dose: 100 ml Ketorolac Tromethamine (Toradol) 30 mg IVPUSH ONETIME ONE Stop: 05/02/19 23:40 Last Admin: 05/02/19 23:53 Dose: 30 mg Ketorolac Tromethamine (Toradol) 10 mg PO Q6H PRN PRN Reason: Pain Stop: 05/09/19 09:15 Ketorolac Tromethamine (Toradol) 10 mg PO Q6H [facility] Stop: 05/10/19 18:01 Last Admin: 05/06/19 09:30 Dose: Not Given Lidocaine (Xylocaine-Mpf 2%) Confirm Administered Dose 5 ml .ROUTE .STK-MED ONE Stop: 05/05/19 14:46 Midazolam HCl (Versed 1 Mg/Ml) Confirm Administered Dose 2 mg .ROUTE .STK-MED ONE Stop: 05/05/19 14:47 Naloxone HCl (Narcan) 0.1 mg IVPUSH ASDIRECTED PRN PRN Reason: Respiratory Depression Ondansetron HCl (Zofran) Confirm Administered Dose 4 mg .ROUTE .STK-MED ONE Stop: 05/05/19 14:46 Propofol (Diprivan 20 Ml) Confirm Administered Dose 200 mg .ROUTE .STK-MED ONE Stop: 05/05/19 14:46 Rocuronium [place] (Zemuron) Confirm Administered Dose 100 mg .ROUTE .STK-MED ONE Stop: 05/05/19 14:47 Succinylcholine Chloride (Succinylcholine Chloride) Confirm Administered Dose 200 mg .ROUTE .STK-MED ONE Stop: 05/05/19 14:47 Tramadol HCl (Ultram) 50 mg PO Q4H PRN PRN Reason: Pain Last Admin: 05/04/19 18:24 Dose: 50 mg - Exam Wound/Incisions: Healing Well, No Drainage General: Alert, Oriented HEENT: Pupils Equal, Pupils Reactive Neck: Supple Lungs: Normal Respiratory Effort Cardiovascular: Regular Rate GI/Abdominal Exam: Soft, Non-Tender, No Distention, No Mass Skin: Warm, Dry, Intact - Problem List & Annotations (1) SBO (small bowel obstruction) SNOMED Code(s): 584899183 Code(s): K56.609 - UNSP INTESTNL OBST, UNSP TO PARTIAL VERSUS COMPLETE OBST Status: Acute Current Visit: Yes - Problem List Review Problem List Initiated/Reviewed/Updated: Yes - My Orders Last 24 Hours: Active Orders 24 hr Category Date Time Status Patient Status [ADT] Routine ADT 05/06/19 12:39 Active Transfer Patient (Change bed) [ADT] Routine ADT 05/06/19 12:39 Ordered NG [Gastrointestinal Tube Mgmt] [RC] ASDIRECTED Care 05/07/19 07:25 Active CBC W/O DIFF,HEMOGRAM [HEME] AM Lab 05/08/19 05:11 Ordered CBC W/O DIFF,HEMOGRAM [HEME] AM Lab 05/09/19 05:11 Ordered CBC W/O DIFF,HEMOGRAM [HEME] AM Lab 05/10/19 05:11 Ordered CMP [COMPREHENSIVE METABOLIC PN,CMP] [CHEM] AM Lab 05/08/19 05:11 Ordered CMP [COMPREHENSIVE METABOLIC PN,CMP] [CHEM] AM Lab 05/09/19 05:11 Ordered CMP [COMPREHENSIVE METABOLIC PN,CMP] [CHEM] AM Lab 05/10/19 05:11 Ordered MAGNESIUM [CHEM] AM Lab 05/08/19 05:11 Ordered MAGNESIUM [CHEM] AM Lab 05/09/19 05:11 Ordered MAGNESIUM [CHEM] AM Lab 05/10/19 05:11 Ordered PHOSPHORUS [CHEM] AM Lab 05/08/19 05:11 Ordered PHOSPHORUS [CHEM] AM Lab 05/09/19 05:11 Ordered PHOSPHORUS [CHEM] AM Lab 05/10/19 05:11 Ordered Dextrose 5%-0.9% NaCl with KCl [D5 NS with 20 mEq KCl] Med 05/06/19 14:48 Active 1,000 ml IV ASDIRECTED Medication Orders Diphenhydramine HCl (Benadryl) 25 mg IVPUSH Q4H PRN PRN Reason: Itching Enoxaparin Sodium (Lovenox) 40 mg SUBCUT Q24H [facility] Last Admin: 05/07/19 08:45 Dose: 40 mg Admin: 05/06/19 09:20 Dose: 40 mg Admin: 05/05/19 09:51 Dose: 40 mg Pantoprazole Sodium 40 mg/ (Sodium Chloride) 10 mls @ 300 mls/hr IVPUSH DAILY [facility] Last Admin: 05/07/19 08:43 Dose: 300 mls/hr Infusion: 05/06/19 09:14 Dose: 300 mls/hr Admin: 05/06/19 09:12 Dose: 300 mls/hr Infusion: 05/05/19 10:01 Dose: 300 mls/hr Admin: 05/05/19 09:59 Dose: 300 mls/hr Potassium Chloride/Dextrose/Sod Cl (D5 Ns With 20 Meq Kcl) 1,000 mls @ 75 mls/ hr IV ASDIRECTED [facility] Last Admin: 05/07/19 06:25 Dose: 75 mls/hr Infusion: 05/07/19 06:25 Dose: 75 mls/hr Admin: 05/06/19 18:59 Dose: 75 mls/hr Infusion: 05/06/19 18:59 Dose: 75 mls/hr Admin: 05/06/19 15:45 Dose: 75 mls/hr Ketorolac Tromethamine (Toradol) 30 mg IVPUSH Q6H [facility] Stop: 05/10/19 19:54 Last Admin: 05/07/19 08:44 Dose: 30 mg Admin: 05/07/19 01:03 Dose: 30 mg Admin: 05/06/19 20:10 Dose: 30 mg Admin: 05/06/19 14:33 Dose: 30 mg Admin: 05/06/19 09:13 Dose: 30 mg Admin: 05/06/19 02:10 Dose: 30 mg Admin: 05/05/19 20:19 Dose: 30 mg Morphine Sulfate (Morphine Manager Domestic 30 Mg In 30 Ml) 0 mg IV ASDIRECTED [facility]; Protocol Last Admin: 05/07/19 00:58 Dose: 30 mg Admin: 05/06/19 10:14 Dose: 30 mg Admin: 05/05/19 18:37 Dose: 30 mg Multivitamins/Minerals/Vitamin C (Tab-A-Shiv) 1 tab PO DAILY [facility] Last Admin: 05/07/19 08:31 Dose: Admin: 05/06/19 09:13 Dose: Admin: 05/05/19 09:27 Dose: Admin: 05/04/19 09:53 Dose: 1 tab Ondansetron HCl (Zofran) 4 mg IVPUSH Q6H PRN PRN Reason: Nausea/Vomiting Last Admin: 05/05/19 11:26 Dose: 4 mg Polyethylene Glycol (Miralax) 17 gm PO DAILY [facility] Last Admin: 05/07/19 08:30 Dose: Admin: 05/06/19 09:13 Dose: Admin: 05/05/19 09:27 Dose: Admin: 05/04/19 09:52 Dose: 17 gm Promethazine HCl (Phenergan) 12.5 mg IM Q6H PRN PRN Reason: Nausea Sodium Chloride (Saline Flush) 10 ml FLUSH ASDIRECTED PRN PRN Reason: Keep Vein Open Sodium Chloride (Saline Flush) 2.5 ml FLUSH ASDIRECTED PRN PRN Reason: Keep Vein Open Sodium Chloride (Normal Saline) 10 ml IV ASDIRECTED PRN PRN Reason: IV Use - Plan Plan (Free Text/Narrative):: patient is feeling much better today. He feels less bloated. Here is very hungry and wondering when he can eat. Vital signs stable overnight. Increased urine output as well. NG output was only 100 mils over the last 12 hours and it appears clearer than before. 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 CV/Pulm: Encourage out of bed activity today with IS use. Should walk around the unit at least twice. VS and pulmonary function stable. GI: Distension improved and NG output down. will clamp the nasogastric tube today. If this evening the patient is doing well with no nausea vomiting or increased distention can remove it and start ice chips. GI prophylaxis with IV Protonix until the patient can tolerate by mouth medications. Renal: phosphorus is slightly low but cannot replace with any IV medications at this time. Magnesium is stable. Urine output is good. BUN/creatinine are stable. ContinueD5 normal saline with 20 mEq of KCl at 100 mils per hour until able to toleratea diet. ID: No signs of infection. WBC normal Heme: Stable. Lovenox
[2019-05-07] MEDS: Morphine 2 MG/ML Syringe IVPUSH PRN ×2 (21:40→23:21)
[2019-05-08] MEDS: Ketorolac 30 MG/ML SDV IVPUSH SCH ×2 (02:13→08:55)
--- NOTE | 2019-05-08 05:09 | PCM48HPAN ---
Post Anesthesia Note - EVALUATION WITHIN 48HRS OF ANESTHETIC Vital Signs in Normal Range: Yes Patient Participated in Evaluation: Yes Respiratory Function Stable: Yes Airway Patent: Yes Cardiovascular Function Stable: Yes Hydration Status Stable: Yes Pain Control Satisfactory: Yes Nausea and Vomiting Control Satisfactory: Yes Mental Status Recovered: Yes Pulse Rate: 70 SaO2: 97 Resp Rate: 14 Blood Pressure: 111/65
[2019-05-08] MEDS: Morphine 2 MG/ML Syringe IVPUSH PRN ×2 (05:56→07:03)
[2019-05-08 06:02] LABS: BLOOD UREA NITROGEN,BUN 10 mg/dL (7.0-18.0); CARBON DIOXIDE,CO2 28.5 mmol/L (21.0-32.0); CHLORIDE,CL 103 mmol/L (98-107); GLUCOSE RANDOM 89 mg/dL (74-106); POTASSIUM,K 3.7 mmol/L (3.5-5.1); SODIUM,NA 138 mmol/L (136-148)
[2019-05-08] MEDS: Dextrose 5%-0.9% NaCl with KCl 1,000 ML IV SCH (07:03)
[2019-05-08] MEDS ORDERED: Magnesium Sulfate/Water 2 GM in Premix Bag 1 BAG IV ONE (08:00)
[2019-05-08] MEDS ORDERED: Acetaminophen/oxyCODONE 325-5 MG Tab PO PRN (08:03)
[2019-05-08] MEDS ORDERED: Bisacodyl 10 MG Supp RECTAL PRN (08:08)
--- NOTE | 2019-05-08 08:48 | PCM.SURGPN ---
- General Info Date of Service: 05/08/19 Date of Surgery/Procedure: 05/05/19 POD#: 3 Functional Status: Reports: Pain Controlled, Ambulating, Urinating. Denies: New Symptoms - Review of Systems General: Reports: No Symptoms HEENT: Reports: No Symptoms Pulmonary: Reports: No Symptoms Cardiovascular: Reports: No Symptoms Gastrointestinal: Reports: No Symptoms, Other (improved distension) Musculoskeletal: Reports: No Symptoms - Patient Data Vitals - Most Recent: Last Vital Signs Temp 36.3 C 05/08/19 07:42 Pulse 65 05/08/19 07:42 Resp 17 05/08/19 07:42 BP 106/67 05/08/19 07:42 Pulse Ox 99 05/08/19 07:42 Weight - Most Recent: 60.328 kg I&O - Last 24 Hours: Intake & Output 05/07/19 05/08/19 05/08/19 22:59 06:59 14:59 Intake Total 721 937 Output Total 0 800 Balance 721 137 Lab Results Last 24 Hrs: Laboratory Results - last 24 hr 05/08/19 05/08/19 Range/Units 04:36 04:36 WBC 5.12 (4.0-11.0) K/uL RBC 4.53 (4.50-5.90) M/uL Hgb 13.3 (13.0-17.0) g/dL Hct 37.8 L (38.0-50.0) % MCV 83.4 (80.0-98.0) fL MCH 29.4 (27.0-32.0) pg MCHC 35.2 (31.0-37.0) g/dL RDW Std Deviation 40.0 (28.0-62.0) fl RDW Coeff of Paul 13 (11.0-15.0) % Plt Count 309 (150-400) K/uL MPV 10.80 (7.40-12.00) fL Nucleated RBC % 0.0 /100WBC Nucleated RBCs # 0 K/uL Sodium 138 (136-148) mmol/L Potassium 3.7 (3.5-5.1) mmol/L Chloride 103 (98-107) mmol/L Carbon Dioxide 28.5 (21.0-32.0) mmol/L BUN 10 (7.0-18.0) mg/dL Creatinine 0.8 (0.8-1.3) mg/dL Est Cr Clr Drug Dosing 123.59 mL/min Estimated GFR (MDRD) > 60.0 ml/min Glucose 89 (74-106) mg/dL Calcium 8.5 (8.5-10.1) mg/dL Phosphorus 2.8 (2.6-4.7) mg/dL Magnesium 1.7 L (1.8-2.4) mg/dL Total Bilirubin 0.9 (0.2-1.0) mg/dL AST 17 (15-37) IU/L ALT 14 (14-63) IU/L Alkaline Phosphatase 40 L (46-116) U/L Total Protein 6.2 L (6.4-8.2) g/dL Albumin 2.5 L (3.4-5.0) g/dL Globulin 3.7 (2.6-4.0) g/dL Albumin/Globulin Ratio 0.7 L (0.9-1.6) Med Orders - Current: Current Medications Bisacodyl (Dulcolax) 10 mg RECTAL DAILY PRN PRN Reason: Constipation Cyclobenzaprine HCl (Flexeril) 5 mg PO TID [facility] Diphenhydramine HCl (Benadryl) 25 mg IVPUSH Q4H PRN PRN Reason: Itching Enoxaparin Sodium (Lovenox) 40 mg SUBCUT Q24H [facility] Last Admin: 05/07/19 08:45 Dose: 40 mg Magnesium Sulfate 2 gm/ Premix 50 mls @ 50 mls/hr IV ONETIME ONE Stop: 05/08/19 08:59 Ketorolac Tromethamine (Toradol) 10 mg PO Q6H [facility] Stop: 05/13/19 08:16 Morphine Sulfate (Morphine) 2 mg IVPUSH Q1H PRN PRN Reason: Pain Last Admin: 05/08/19 07:03 Dose: 2 mg Multivitamins/Minerals/Vitamin C (Tab-A-Shiv) 1 tab PO DAILY [facility] Last Admin: 05/07/19 08:31 Dose: Not Given Ondansetron HCl (Zofran) 4 mg IVPUSH Q6H PRN PRN Reason: Nausea/Vomiting Last Admin: 05/05/19 11:26 Dose: 4 mg Oxycodone/Acetaminophen (Percocet 325-5 Mg) 2 tab PO Q4H PRN PRN Reason: Abdominal Pain Polyethylene Glycol (Miralax) 17 gm PO DAILY [facility] Last Admin: 05/07/19 08:30 Dose: Not Given Promethazine HCl (Phenergan) 12.5 mg IM Q6H PRN PRN Reason: Nausea Sodium Chloride (Saline Flush) 10 ml FLUSH ASDIRECTED PRN PRN Reason: Keep Vein Open Sodium Chloride (Saline Flush) 2.5 ml FLUSH ASDIRECTED PRN PRN Reason: Keep Vein Open Sodium Chloride (Normal Saline) 10 ml IV ASDIRECTED PRN PRN Reason: IV Use Discontinued Medications Albuterol (Proventil Neb Soln) 2.5 mg NEB ONETIME PRN PRN Reason: Wheezing Atropine Sulfate (Atropine 0.1 Mg/Ml) 0.5 mg IVPUSH ASDIRECTED PRN PRN Reason: Hypo-perfusion Atropine Sulfate (Atropine 0.1 Mg/Ml) 1 mg IVPUSH ASDIRECTED PRN PRN Reason: Hypo-Perfusion Bupivacaine HCl (Marcaine 0.5%) Confirm Administered Dose 120 ml .ROUTE .STK- MED ONE Stop: 05/05/19 14:54 Cefazolin Sodium (Ancef) Confirm Administered Dose 1 gm .ROUTE .STK-MED ONE Stop: 05/05/19 14:54 Cefazolin Sodium (Ancef) Confirm Administered Dose 1 gm .ROUTE .STK-MED ONE Stop: 05/05/19 16:51 Cefoxitin Sodium (Mefoxin) Confirm Administered Dose 1 gm .ROUTE .STK-MED ONE Stop: 05/05/19 15:58 Dextrose/Water (Dextrose 50% In Water) 50 ml IVPUSH ASDIRECTED PRN PRN Reason: Hypoglycemia Epinephrine HCl (Epinephrine 1:10,000) 1 mg IVPUSH ASDIRECTED PRN PRN Reason: ACLS Guidelines Fentanyl (Sublimaze) Confirm Administered Dose 250 mcg .ROUTE .STK-MED ONE Stop: 05/05/19 14:47 Fentanyl (Sublimaze) 50 - 100 mcg IVPUSH Q5M PRN PRN Reason: Pain Fentanyl (Sublimaze) Confirm Administered Dose 100 mcg .ROUTE .STK-MED ONE Stop: 05/05/19 17:51 Last Admin: 05/05/19 18:50 Dose: 100 mcg Hydromorphone HCl (Dilaudid) 0.5 mg IVPUSH Q1H PRN PRN Reason: Pain (severe 7-10) Hydromorphone HCl (Dilaudid) 0.5 mg IVPUSH Q1H PRN PRN Reason: Pain (severe 7-10) Last Admin: 05/05/19 13:11 Dose: 0.5 mg Sodium Chloride (Normal Saline) 1,000 mls @ 999 mls/hr IV STAT ONE Stop: 05/02/19 23:03 Last Admin: 05/02/19 22:15 Dose: 999 mls/hr Lactated Ringer's (Ringers, Lactated) 1,000 mls @ 125 mls/hr IV ASDIRECTED [facility] Last Admin: 05/05/19 02:49 Dose: 125 mls/hr Lactated Ringer's (Ringers, Lactated) 1,000 mls @ 999 mls/hr IV .BOLUS [facility] Last Admin: 05/03/19 08:59 Dose: 999 mls/hr Magnesium Sulfate 2 gm/ Premix 50 mls @ 50 mls/hr IV ONETIME ONE Stop: 05/03/19 09:35 Last Admin: 05/03/19 09:11 Dose: 50 mls/hr Sodium Chloride (Normal Saline) 1,000 mls @ 100 mls/hr IV ASDIRECTED [facility] Last Admin: 05/05/19 09:27 Dose: 100 mls/hr Pantoprazole Sodium 40 mg/ (Sodium Chloride) 100 mls @ 10 mls/hr IVPUSH DAILY [facility] Last Admin: 05/05/19 10:28 Dose: Not Given Pantoprazole Sodium 40 mg/ (Sodium Chloride) 10 mls @ 300 mls/hr IVPUSH DAILY [facility] Last Admin: 05/07/19 08:43 Dose: 300 mls/hr Sodium Chloride (Normal Saline) Confirm Administered Dose 20 mls @ as directed .ROUTE .STK-MED ONE Stop: 05/05/19 15:58 Potassium Chloride/Dextrose/Sod Cl (D5 Ns With 20 Meq Kcl) 1,000 mls @ 100 mls/ hr IV ASDIRECTED [facility] Last Admin: 05/06/19 05:56 Dose: 100 mls/hr Magnesium Sulfate 4 gm/ Premix 100 mls @ 50 mls/hr IV ONETIME ONE Stop: 05/06/19 09:24 Last Admin: 05/06/19 09:20 Dose: 50 mls/hr Potassium Chloride/Dextrose/Sod Cl (D5 Ns With 20 Meq Kcl) 1,000 mls @ 75 mls/ hr IV ASDIRECTED [facility] Last Admin: 05/08/19 07:03 Dose: 75 mls/hr Iopamidol (Isovue-370 (76%)) 100 ml IVPUSH ONETIME ONE Stop: 05/02/19 23:00 Last Admin: 05/02/19 23:11 Dose: 100 ml Ketorolac Tromethamine (Toradol) 30 mg IVPUSH ONETIME ONE Stop: 05/02/19 23:40 Last Admin: 05/02/19 23:53 Dose: 30 mg Ketorolac Tromethamine (Toradol) 10 mg PO Q6H PRN PRN Reason: Pain Stop: 05/09/19 09:15 Ketorolac Tromethamine (Toradol) 10 mg PO Q6H [facility] Stop: 05/10/19 18:01 Last Admin: 05/06/19 09:30 Dose: Not Given Ketorolac Tromethamine (Toradol) 30 mg IVPUSH Q6H [facility] Stop: 05/10/19 19:54 Last Admin: 05/08/19 02:13 Dose: 30 mg Lidocaine (Xylocaine-Mpf 2%) Confirm Administered Dose 5 ml .ROUTE .STK-MED ONE Stop: 05/05/19 14:46 Midazolam HCl (Versed 1 Mg/Ml) Confirm Administered Dose 2 mg .ROUTE .STK-MED ONE Stop: 05/05/19 14:47 Morphine Sulfate (Morphine Supervisor Fitting 30 Mg In 30 Ml) 0 mg IV ASDIRECTED [facility]; Protocol Last Admin: 05/07/19 00:58 Dose: 30 mg Naloxone HCl (Narcan) 0.1 mg IVPUSH ASDIRECTED PRN PRN Reason: Respiratory Depression Ondansetron HCl (Zofran) Confirm Administered Dose 4 mg .ROUTE .STK-MED ONE Stop: 05/05/19 14:46 Propofol (Diprivan 20 Ml) Confirm Administered Dose 200 mg .ROUTE .STK-MED ONE Stop: 05/05/19 14:46 Rocuronium [place] (Zemuron) Confirm Administered Dose 100 mg .ROUTE .STK-MED ONE Stop: 05/05/19 14:47 Succinylcholine Chloride (Succinylcholine Chloride) Confirm Administered Dose 200 mg .ROUTE .STK-MED ONE Stop: 05/05/19 14:47 Tramadol HCl (Ultram) 50 mg PO Q4H PRN PRN Reason: Pain Last Admin: 05/04/19 18:24 Dose: 50 mg - Exam Wound/Incisions: Healing Well General: Alert, Oriented, Cooperative HEENT: Pupils Equal Lungs: Normal Respiratory Effort Cardiovascular: Regular Rate GI/Abdominal Exam: Soft, Non-Tender, No Mass, Distended (improving) Extremities: Normal Inspection Skin: Warm, Dry, Intact Psy/Mental Status: Alert, Normal Affect, Normal Mood - Problem List & Annotations (1) SBO (small bowel obstruction) SNOMED Code(s): 193028547 Code(s): K56.609 - UNSP INTESTNL OBST, UNSP TO PARTIAL VERSUS COMPLETE OBST Status: Acute Current Visit: Yes - Problem List Review Problem List Initiated/Reviewed/Updated: Yes - My Orders Last 24 Hours: Active Orders 24 hr Category Date Time Status Clear Liquid Diet [DIET] Diet 05/08/19 Lunch Active Acetaminophen/oxyCODONE [Percocet 325-5 MG] Med 05/08/19 08:03 Active 2 tab PO Q4H PRN Bisacodyl [Dulcolax] Med 05/08/19 08:08 Active 10 mg RECTAL DAILY PRN Cyclobenzaprine [Flexeril] Med 05/08/19 14:00 Active 5 mg PO TID Ketorolac [Toradol] Med 05/08/19 08:15 Active 10 mg PO Q6H Magnesium Sulfate/Water [Magnesium Sulfate in Water Med 05/08/19 08:00 Active Premix] 2 gm Premix Bag 1 bag IV ONETIME Morphine Med 05/07/19 20:54 Active 2 mg IVPUSH Q1H PRN Medication Orders Bisacodyl (Dulcolax) 10 mg RECTAL DAILY PRN PRN Reason: Constipation Cyclobenzaprine HCl (Flexeril) 5 mg PO TID KULDIP Diphenhydramine HCl (Benadryl) 25 mg IVPUSH Q4H PRN PRN Reason: Itching Enoxaparin Sodium (Lovenox) 40 mg SUBCUT Q24H KULDIP Last Admin: 05/07/19 08:45 Dose: 40 mg Admin: 05/06/19 09:20 Dose: 40 mg Admin: 05/05/19 09:51 Dose: 40 mg Magnesium Sulfate 2 gm/ Premix 50 mls @ 50 mls/hr IV ONETIME ONE Stop: 05/08/19 08:59 Ketorolac Tromethamine (Toradol) 10 mg PO Q6H [facility] Stop: 05/13/19 08:16 Morphine Sulfate (Morphine) 2 mg IVPUSH Q1H PRN PRN Reason: Pain Last Admin: 05/08/19 07:03 Dose: 2 mg Admin: 05/08/19 05:56 Dose: 2 mg Admin: 05/07/19 23:21 Dose: 2 mg Admin: 05/07/19 21:40 Dose: 2 mg Multivitamins/Minerals/Vitamin C (Tab-A-Shiv) 1 tab PO DAILY [facility] Last Admin: 05/07/19 08:31 Dose: Admin: 05/06/19 09:13 Dose: Admin: 05/05/19 09:27 Dose: Admin: 05/04/19 09:53 Dose: 1 tab Ondansetron HCl (Zofran) 4 mg IVPUSH Q6H PRN PRN Reason: Nausea/Vomiting Last Admin: 05/05/19 11:26 Dose: 4 mg Oxycodone/Acetaminophen (Percocet 325-5 Mg) 2 tab PO Q4H PRN PRN Reason: Abdominal Pain Polyethylene Glycol (Miralax) 17 gm PO DAILY [facility] Last Admin: 05/07/19 08:30 Dose: Admin: 05/06/19 09:13 Dose: Admin: 05/05/19 09:27 Dose: Admin: 05/04/19 09:52 Dose: 17 gm Promethazine HCl (Phenergan) 12.5 mg IM Q6H PRN PRN Reason: Nausea Sodium Chloride (Saline Flush) 10 ml FLUSH ASDIRECTED PRN PRN Reason: Keep Vein Open Sodium Chloride (Saline Flush) 2.5 ml FLUSH ASDIRECTED PRN PRN Reason: Keep Vein Open Sodium Chloride (Normal Saline) 10 ml IV ASDIRECTED PRN PRN Reason: IV Use - Plan Plan (Free Text/Narrative):: Patient had NG pulled last evening. Has tolerated ice chips. Will advance to clears until passing gas. Scheduled ORAL Flexeril and Toradol. PRN percocet and IV morphine. Replacing magnesium today. Scheduled miralax and prn dulcolax tablet. Can hold IVF once taking adequate po.
[2019-05-08] MEDS: Enoxaparin 40 MG/0.4 ML Syringe SUBCUT SCH (08:50)
[2019-05-08] MEDS: Multivitamin Tab PO SCH (08:52)
[2019-05-08] MEDS: Ketorolac 10 MG Tab PO SCH ×3 (08:52→20:29)
[2019-05-08] MEDS: Polyethylene Glycol 3350 Powder 17 GM Packet PO SCH (08:55)
[2019-05-08] MEDS: Cyclobenzaprine 5 MG Tab PO SCH ×2 (13:38→22:07)
[2019-05-09] MEDS: Ketorolac 10 MG Tab PO SCH ×4 (02:20→20:15)
[2019-05-09] MEDS: Cyclobenzaprine 5 MG Tab PO SCH ×3 (06:20→21:18)
[2019-05-09] MEDS: Multivitamin Tab PO SCH (09:06)
[2019-05-09] MEDS: Bisacodyl 5 MG Tab PO SCH (09:06)
[2019-05-09] MEDS: Polyethylene Glycol 3350 Powder 17 GM Packet PO SCH (09:08)
[2019-05-09] MEDS: Enoxaparin 40 MG/0.4 ML Syringe SUBCUT SCH (09:09)
--- NOTE | 2019-05-09 14:15 | PCM.SURGPN ---
- General Info Date of Service: 05/09/19 Date of Surgery/Procedure: 05/05/19 POD#: 4 Functional Status: Reports: Pain Controlled, Tolerating Diet, Ambulating, Urinating - Review of Systems General: Reports: No Symptoms HEENT: Reports: No Symptoms Pulmonary: Reports: No Symptoms Cardiovascular: Reports: No Symptoms Gastrointestinal: Reports: Flatus Genitourinary: Reports: No Symptoms Musculoskeletal: Reports: No Symptoms Skin: Reports: No Symptoms - Patient Data Vitals - Most Recent: Last Vital Signs Temp 36.5 C 05/09/19 11:00 Pulse 58 L 05/09/19 11:00 Resp 18 05/09/19 11:00 BP 120/64 05/09/19 11:00 Pulse Ox 100 05/09/19 11:00 Weight - Most Recent: 60.328 kg I&O - Last 24 Hours: Intake & Output 05/08/19 05/09/19 05/09/19 22:59 06:59 14:59 Intake Total 100 440 Output Total 1000 850 Balance -900 -410 Med Orders - Current: Current Medications Bisacodyl (Dulcolax) 10 mg RECTAL DAILY PRN PRN Reason: Constipation Bisacodyl (Dulcolax) 5 mg PO DAILY [facility] Last Admin: 05/09/19 09:06 Dose: 5 mg Cyclobenzaprine HCl (Flexeril) 5 mg PO TID [facility] Last Admin: 05/09/19 14:02 Dose: 5 mg Diphenhydramine HCl (Benadryl) 25 mg IVPUSH Q4H PRN PRN Reason: Itching Enoxaparin Sodium (Lovenox) 40 mg SUBCUT Q24H [facility] Last Admin: 05/09/19 09:09 Dose: 40 mg Ketorolac Tromethamine (Toradol) 10 mg PO Q6H [facility] Stop: 05/13/19 08:16 Last Admin: 05/09/19 14:02 Dose: 10 mg Morphine Sulfate (Morphine) 2 mg IVPUSH Q1H PRN PRN Reason: Pain Last Admin: 05/08/19 07:03 Dose: 2 mg Multivitamins/Minerals/Vitamin C (Tab-A-Shiv) 1 tab PO DAILY [facility] Last Admin: 05/09/19 09:06 Dose: 1 tab Ondansetron HCl (Zofran) 4 mg IVPUSH Q6H PRN PRN Reason: Nausea/Vomiting Last Admin: 05/05/19 11:26 Dose: 4 mg Oxycodone/Acetaminophen (Percocet 325-5 Mg) 2 tab PO Q4H PRN PRN Reason: Abdominal Pain Polyethylene Glycol (Miralax) 17 gm PO DAILY [facility] Last Admin: 05/09/19 09:08 Dose: 17 gm Promethazine HCl (Phenergan) 12.5 mg IM Q6H PRN PRN Reason: Nausea Sodium Chloride (Saline Flush) 10 ml FLUSH ASDIRECTED PRN PRN Reason: Keep Vein Open Sodium Chloride (Saline Flush) 2.5 ml FLUSH ASDIRECTED PRN PRN Reason: Keep Vein Open Sodium Chloride (Normal Saline) 10 ml IV ASDIRECTED PRN PRN Reason: IV Use Discontinued Medications Albuterol (Proventil Neb Soln) 2.5 mg NEB ONETIME PRN PRN Reason: Wheezing Atropine Sulfate (Atropine 0.1 Mg/Ml) 0.5 mg IVPUSH ASDIRECTED PRN PRN Reason: Hypo-perfusion Atropine Sulfate (Atropine 0.1 Mg/Ml) 1 mg IVPUSH ASDIRECTED PRN PRN Reason: Hypo-Perfusion Bupivacaine HCl (Marcaine 0.5%) Confirm Administered Dose 120 ml .ROUTE .STK- MED ONE Stop: 05/05/19 14:54 Cefazolin Sodium (Ancef) Confirm Administered Dose 1 gm .ROUTE .STK-MED ONE Stop: 05/05/19 14:54 Cefazolin Sodium (Ancef) Confirm Administered Dose 1 gm .ROUTE .STK-MED ONE Stop: 05/05/19 16:51 Cefoxitin Sodium (Mefoxin) Confirm Administered Dose 1 gm .ROUTE .STK-MED ONE Stop: 05/05/19 15:58 Dextrose/Water (Dextrose 50% In Water) 50 ml IVPUSH ASDIRECTED PRN PRN Reason: Hypoglycemia Epinephrine HCl (Epinephrine 1:10,000) 1 mg IVPUSH ASDIRECTED PRN PRN Reason: ACLS Guidelines Fentanyl (Sublimaze) Confirm Administered Dose 250 mcg .ROUTE .STK-MED ONE Stop: 05/05/19 14:47 Fentanyl (Sublimaze) 50 - 100 mcg IVPUSH Q5M PRN PRN Reason: Pain Fentanyl (Sublimaze) Confirm Administered Dose 100 mcg .ROUTE .STK-MED ONE Stop: 05/05/19 17:51 Last Admin: 05/05/19 18:50 Dose: 100 mcg Hydromorphone HCl (Dilaudid) 0.5 mg IVPUSH Q1H PRN PRN Reason: Pain (severe 7-10) Hydromorphone HCl (Dilaudid) 0.5 mg IVPUSH Q1H PRN PRN Reason: Pain (severe 7-10) Last Admin: 05/05/19 13:11 Dose: 0.5 mg Sodium Chloride (Normal Saline) 1,000 mls @ 999 mls/hr IV STAT ONE Stop: 05/02/19 23:03 Last Admin: 05/02/19 22:15 Dose: 999 mls/hr Lactated Ringer's (Ringers, Lactated) 1,000 mls @ 125 mls/hr IV ASDIRECTED [facility] Last Admin: 05/05/19 02:49 Dose: 125 mls/hr Lactated Ringer's (Ringers, Lactated) 1,000 mls @ 999 mls/hr IV .BOLUS [facility] Last Admin: 05/03/19 08:59 Dose: 999 mls/hr Magnesium Sulfate 2 gm/ Premix 50 mls @ 50 mls/hr IV ONETIME ONE Stop: 05/03/19 09:35 Last Admin: 05/03/19 09:11 Dose: 50 mls/hr Sodium Chloride (Normal Saline) 1,000 mls @ 100 mls/hr IV ASDIRECTED [facility] Last Admin: 05/05/19 09:27 Dose: 100 mls/hr Pantoprazole Sodium 40 mg/ (Sodium Chloride) 100 mls @ 10 mls/hr IVPUSH DAILY [facility] Last Admin: 05/05/19 10:28 Dose: Not Given Pantoprazole Sodium 40 mg/ (Sodium Chloride) 10 mls @ 300 mls/hr IVPUSH DAILY [facility] Last Admin: 05/07/19 08:43 Dose: 300 mls/hr Sodium Chloride (Normal Saline) Confirm Administered Dose 20 mls @ as directed .ROUTE .STK-MED ONE Stop: 05/05/19 15:58 Potassium Chloride/Dextrose/Sod Cl (D5 Ns With 20 Meq Kcl) 1,000 mls @ 100 mls/ hr IV ASDIRECTED [facility] Last Admin: 05/06/19 05:56 Dose: 100 mls/hr Magnesium Sulfate 4 gm/ Premix 100 mls @ 50 mls/hr IV ONETIME ONE Stop: 05/06/19 09:24 Last Admin: 05/06/19 09:20 Dose: 50 mls/hr Potassium Chloride/Dextrose/Sod Cl (D5 Ns With 20 Meq Kcl) 1,000 mls @ 75 mls/ hr IV ASDIRECTED [facility] Last Admin: 05/08/19 07:03 Dose: 75 mls/hr Magnesium Sulfate 2 gm/ Premix 50 mls @ 50 mls/hr IV ONETIME ONE Stop: 05/08/19 08:59 Last Admin: 05/08/19 08:41 Dose: 50 mls/hr Iopamidol (Isovue-370 (76%)) 100 ml IVPUSH ONETIME ONE Stop: 05/02/19 23:00 Last Admin: 05/02/19 23:11 Dose: 100 ml Ketorolac Tromethamine (Toradol) 30 mg IVPUSH ONETIME ONE Stop: 05/02/19 23:40 Last Admin: 05/02/19 23:53 Dose: 30 mg Ketorolac Tromethamine (Toradol) 10 mg PO Q6H PRN PRN Reason: Pain Stop: 05/09/19 09:15 Ketorolac Tromethamine (Toradol) 10 mg PO Q6H [facility] Stop: 05/10/19 18:01 Last Admin: 05/06/19 09:30 Dose: Not Given Ketorolac Tromethamine (Toradol) 30 mg IVPUSH Q6H [facility] Stop: 05/10/19 19:54 Last Admin: 05/08/19 08:55 Dose: Not Given Lidocaine (Xylocaine-Mpf 2%) Confirm Administered Dose 5 ml .ROUTE .STK-MED ONE Stop: 05/05/19 14:46 Midazolam HCl (Versed 1 Mg/Ml) Confirm Administered Dose 2 mg .ROUTE .STK-MED ONE Stop: 05/05/19 14:47 Morphine Sulfate (Morphine Neuropsychiatrist 30 Mg In 30 Ml) 0 mg IV ASDIRECTED [facility]; Protocol Last Admin: 05/07/19 00:58 Dose: 30 mg Naloxone HCl (Narcan) 0.1 mg IVPUSH ASDIRECTED PRN PRN Reason: Respiratory Depression Ondansetron HCl (Zofran) Confirm Administered Dose 4 mg .ROUTE .STK-MED ONE Stop: 05/05/19 14:46 Propofol (Diprivan 20 Ml) Confirm Administered Dose 200 mg .ROUTE .STK-MED ONE Stop: 05/05/19 14:46 Rocuronium [place] (Zemuron) Confirm Administered Dose 100 mg .ROUTE .STK-MED ONE Stop: 05/05/19 14:47 Succinylcholine Chloride (Succinylcholine Chloride) Confirm Administered Dose 200 mg .ROUTE .STK-MED ONE Stop: 05/05/19 14:47 Tramadol HCl (Ultram) 50 mg PO Q4H PRN PRN Reason: Pain Last Admin: 05/04/19 18:24 Dose: 50 mg - Exam Wound/Incisions: Healing Well, Dressing Dry and Intact General: Alert, Oriented Lungs: Normal Respiratory Effort Cardiovascular: Regular Rate GI/Abdominal Exam: Soft, Non-Tender, No Distention, No Mass Skin: Warm, Dry, Intact - Problem List & Annotations (1) SBO (small bowel obstruction) SNOMED Code(s): 390437199 Code(s): K56.609 - UNSP INTESTNL OBST, UNSP TO PARTIAL VERSUS COMPLETE OBST Status: Acute Current Visit: Yes - Problem List Review Problem List Initiated/Reviewed/Updated: Yes - My Orders Last 24 Hours: Active Orders 24 hr Category Date Time Status Bisacodyl [Dulcolax] Med 05/09/19 09:00 Active 5 mg PO DAILY Cyclobenzaprine [Flexeril] Med 05/08/19 14:00 Active 5 mg PO TID Medication Orders Bisacodyl (Dulcolax) 10 mg RECTAL DAILY PRN PRN Reason: Constipation Bisacodyl (Dulcolax) 5 mg PO DAILY [facility] Last Admin: 05/09/19 09:06 Dose: 5 mg Cyclobenzaprine HCl (Flexeril) 5 mg PO TID [facility] Last Admin: 05/09/19 14:02 Dose: 5 mg Admin: 05/09/19 06:20 Dose: 5 mg Admin: 05/08/19 22:07 Dose: 5 mg Admin: 05/08/19 13:38 Dose: 5 mg Diphenhydramine HCl (Benadryl) 25 mg IVPUSH Q4H PRN PRN Reason: Itching Enoxaparin Sodium (Lovenox) 40 mg SUBCUT Q24H [facility] Last Admin: 05/09/19 09:09 Dose: 40 mg Admin: 05/08/19 08:50 Dose: 40 mg Admin: 05/07/19 08:45 Dose: 40 mg Admin: 05/06/19 09:20 Dose: 40 mg Admin: 05/05/19 09:51 Dose: 40 mg Ketorolac Tromethamine (Toradol) 10 mg PO Q6H [facility] Stop: 05/13/19 08:16 Last Admin: 05/09/19 14:02 Dose: 10 mg Admin: 05/09/19 09:05 Dose: 10 mg Admin: 05/09/19 02:20 Dose: 10 mg Admin: 05/08/19 20:29 Dose: 10 mg Admin: 05/08/19 13:38 Dose: 10 mg Admin: 05/08/19 08:52 Dose: 10 mg Morphine Sulfate (Morphine) 2 mg IVPUSH Q1H PRN PRN Reason: Pain Last Admin: 05/08/19 07:03 Dose: 2 mg Admin: 05/08/19 05:56 Dose: 2 mg Admin: 05/07/19 23:21 Dose: 2 mg Admin: 05/07/19 21:40 Dose: 2 mg Multivitamins/Minerals/Vitamin C (Tab-A-Shiv) 1 tab PO DAILY [facility] Last Admin: 05/09/19 09:06 Dose: 1 tab Admin: 05/08/19 08:52 Dose: 1 tab Admin: 05/07/19 08:31 Dose: Admin: 05/06/19 09:13 Dose: Admin: 05/05/19 09:27 Dose: Admin: 05/04/19 09:53 Dose: 1 tab Ondansetron HCl (Zofran) 4 mg IVPUSH Q6H PRN PRN Reason: Nausea/Vomiting Last Admin: 05/05/19 11:26 Dose: 4 mg Oxycodone/Acetaminophen (Percocet 325-5 Mg) 2 tab PO Q4H PRN PRN Reason: Abdominal Pain Polyethylene Glycol (Miralax) 17 gm PO DAILY [facility] Last Admin: 05/09/19 09:08 Dose: 17 gm Admin: 05/08/19 08:55 Dose: 17 gm Admin: 05/07/19 08:30 Dose: Admin: 05/06/19 09:13 Dose: Admin: 07/29/19 09:27 Dose: Admin: 05/04/19 09:52 Dose: 17 gm Promethazine HCl (Phenergan) 12.5 mg IM Q6H PRN PRN Reason: Nausea Sodium Chloride (Saline Flush) 10 ml FLUSH ASDIRECTED PRN PRN Reason: Keep Vein Open Sodium Chloride (Saline Flush) 2.5 ml FLUSH ASDIRECTED PRN PRN Reason: Keep Vein Open Sodium Chloride (Normal Saline) 10 ml IV ASDIRECTED PRN PRN Reason: IV Use - Plan Plan (Free Text/Narrative):: Patient is tolerating clears, but not taking much po. Encouraged him to sip on fluids to improve nutrition and hydration. Vitals are stable. Clinical exam unchanged. Patient started on dulcolax. Encouraged to be out of bed and walking.
[2019-05-10] MEDS: Ketorolac 10 MG Tab PO SCH ×4 (02:23→21:00)
[2019-05-10] MEDS: Cyclobenzaprine 5 MG Tab PO SCH ×3 (05:30→22:37)
[2019-05-10] MEDS: Multivitamin Tab PO SCH (08:35)
[2019-05-10] MEDS: Bisacodyl 5 MG Tab PO SCH (08:36)
[2019-05-10] MEDS: Enoxaparin 40 MG/0.4 ML Syringe SUBCUT SCH (08:38)
[2019-05-10] MEDS: Polyethylene Glycol 3350 Powder 17 GM Packet PO SCH (08:45)
--- NOTE | 2019-05-10 09:13 | PCM.SURGPN ---
- General Info POD#: 5 Functional Status: Reports: Pain Controlled, Other (Patietn feels bloated with sips of clear liquids. Still passing gas. No BM yet. VSS. ) - Review of Systems General: Reports: No Symptoms HEENT: Reports: No Symptoms Pulmonary: Reports: No Symptoms Cardiovascular: Reports: No Symptoms Gastrointestinal: Reports: Decreased Appetite, Flatus, Other (Bloating) - Patient Data Vitals - Most Recent: Last Vital Signs Temp 36 C 05/10/19 08:40 Pulse 74 05/10/19 08:40 Resp 16 05/10/19 08:40 BP 111/75 05/10/19 08:40 Pulse Ox 94 L 05/10/19 08:40 Weight - Most Recent: 60.328 kg I&O - Last 24 Hours: Intake & Output 05/09/19 05/10/19 05/10/19 22:59 06:59 14:59 Intake Total 510 600 Output Total 275 780 Balance 235 -180 Med Orders - Current: Current Medications Bisacodyl (Dulcolax) 10 mg RECTAL DAILY PRN PRN Reason: Constipation Cyclobenzaprine HCl (Flexeril) 5 mg PO TID [facility] Last Admin: 05/10/19 05:30 Dose: 5 mg Diphenhydramine HCl (Benadryl) 25 mg IVPUSH Q4H PRN PRN Reason: Itching Enoxaparin Sodium (Lovenox) 40 mg SUBCUT Q24H [facility] [place] Last Admin: 05/10/19 08:38 Dose: 40 mg Ketorolac Tromethamine (Toradol) 10 mg PO Q6H [facility] Stop: 05/13/19 08:16 Last Admin: 05/10/19 08:36 Dose: 10 mg Metoclopramide HCl (Reglan) 5 mg PO Q8H [facility] Morphine Sulfate (Morphine) 2 mg IVPUSH Q1H PRN PRN Reason: Pain Last Admin: 05/08/19 07:03 Dose: 2 mg Multivitamins/Minerals/Vitamin C (Tab-A-Shiv) 1 tab PO DAILY [facility] [place] Last Admin: 05/10/19 08:35 Dose: 1 tab Ondansetron HCl (Zofran) 4 mg IVPUSH Q6H PRN PRN Reason: Nausea/Vomiting Last Admin: 05/05/19 11:26 Dose: 4 mg Oxycodone/Acetaminophen (Percocet 325-5 Mg) 2 tab PO Q4H PRN PRN Reason: Abdominal Pain Polyethylene Glycol (Miralax) 17 gm PO DAILY [facility] [place] Last Admin: 05/09/19 09:08 Dose: 17 gm Promethazine HCl (Phenergan) 12.5 mg IM Q6H PRN PRN Reason: Nausea Senna/Docusate Sodium (Senokot-S) 1 each PO BEDTIME [facility] [place] Sodium Chloride (Saline Flush) 10 ml FLUSH ASDIRECTED PRN PRN Reason: Keep Vein Open Sodium Chloride (Saline Flush) 2.5 ml FLUSH ASDIRECTED PRN PRN Reason: Keep Vein Open Sodium Chloride (Normal Saline) 10 ml IV ASDIRECTED PRN PRN Reason: IV Use Discontinued Medications Albuterol (Proventil Neb Soln) 2.5 mg NEB ONETIME PRN PRN Reason: Wheezing Atropine Sulfate (Atropine 0.1 Mg/Ml) 0.5 mg IVPUSH ASDIRECTED PRN PRN Reason: Hypo-perfusion Atropine Sulfate (Atropine 0.1 Mg/Ml) 1 mg IVPUSH ASDIRECTED PRN PRN Reason: Hypo-Perfusion Bisacodyl (Dulcolax) 5 mg PO DAILY [facility] [place] Last Admin: 05/10/19 08:36 Dose: 5 mg Bupivacaine HCl (Marcaine 0.5%) Confirm Administered Dose 120 ml .ROUTE .STK- MED ONE Stop: 05/05/19 14:54 Cefazolin Sodium (Ancef) Confirm Administered Dose 1 gm .ROUTE .STK-MED ONE Stop: 05/05/19 14:54 Cefazolin Sodium (Ancef) Confirm Administered Dose 1 gm .ROUTE .STK-MED ONE Stop: 05/05/19 16:51 Cefoxitin Sodium (Mefoxin) Confirm Administered Dose 1 gm .ROUTE .STK-MED ONE Stop: 05/05/19 15:58 Dextrose/Water (Dextrose 50% In Water) 50 ml IVPUSH ASDIRECTED PRN PRN Reason: Hypoglycemia Epinephrine HCl (Epinephrine 1:10,000) 1 mg IVPUSH ASDIRECTED PRN PRN Reason: ACLS Guidelines Fentanyl (Sublimaze) Confirm Administered Dose 250 mcg .ROUTE .STK-MED ONE Stop: 05/05/19 14:47 Fentanyl (Sublimaze) 50 - 100 mcg IVPUSH Q5M PRN PRN Reason: Pain Fentanyl (Sublimaze) Confirm Administered Dose 100 mcg .ROUTE .STK-MED ONE Stop: 05/05/19 17:51 Last Admin: 05/05/19 18:50 Dose: 100 mcg Hydromorphone HCl (Dilaudid) 0.5 mg IVPUSH Q1H PRN PRN Reason: Pain (severe 7-10) Hydromorphone HCl (Dilaudid) 0.5 mg IVPUSH Q1H PRN PRN Reason: Pain (severe 7-10) Last Admin: 05/05/19 13:11 Dose: 0.5 mg Sodium Chloride (Normal Saline) 1,000 mls @ 999 mls/hr IV STAT ONE Stop: 05/02/19 23:03 Last Admin: 05/02/19 22:15 Dose: 999 mls/hr Lactated Ringer's (Ringers, Lactated) 1,000 mls @ 125 mls/hr IV ASDIRECTED [facility] Last Admin: 05/05/19 02:49 Dose: 125 mls/hr Lactated Ringer's (Ringers, Lactated) 1,000 mls @ 999 mls/hr IV .BOLUS [facility] Last Admin: 05/03/19 08:59 Dose: 999 mls/hr Magnesium Sulfate 2 gm/ Premix 50 mls @ 50 mls/hr IV ONETIME ONE Stop: 05/03/19 09:35 Last Admin: 05/03/19 09:11 Dose: 50 mls/hr Sodium Chloride (Normal Saline) 1,000 mls @ 100 mls/hr IV ASDIRECTED [facility] Last Admin: 05/05/19 09:27 Dose: 100 mls/hr Pantoprazole Sodium 40 mg/ (Sodium Chloride) 100 mls @ 10 mls/hr IVPUSH DAILY [facility] Last Admin: 05/05/19 10:28 Dose: Not Given Pantoprazole Sodium 40 mg/ (Sodium Chloride) 10 mls @ 300 mls/hr IVPUSH DAILY [facility] Last Admin: 05/07/19 08:43 Dose: 300 mls/hr Sodium Chloride (Normal Saline) Confirm Administered Dose 20 mls @ as directed .ROUTE .STK-MED ONE Stop: 05/05/19 15:58 Potassium Chloride/Dextrose/Sod Cl (D5 Ns With 20 Meq Kcl) 1,000 mls @ 100 mls/ hr IV ASDIRECTED [facility] Last Admin: 05/06/19 05:56 Dose: 100 mls/hr Magnesium Sulfate 4 gm/ Premix 100 mls @ 50 mls/hr IV ONETIME ONE Stop: 05/06/19 09:24 Last Admin: 05/06/19 09:20 Dose: 50 mls/hr Potassium Chloride/Dextrose/Sod Cl (D5 Ns With 20 Meq Kcl) 1,000 mls @ 75 mls/ hr IV ASDIRECTED [facility] [place] Last Admin: 05/08/19 07:03 Dose: 75 mls/hr Magnesium Sulfate 2 gm/ Premix 50 mls @ 50 mls/hr IV ONETIME ONE Stop: 05/08/19 08:59 Last Admin: 05/08/19 08:41 Dose: 50 mls/hr Iopamidol (Isovue-370 (76%)) 100 ml IVPUSH ONETIME ONE Stop: 05/02/19 23:00 Last Admin: 05/02/19 23:11 Dose: 100 ml Ketorolac Tromethamine (Toradol) 30 mg IVPUSH ONETIME ONE Stop: 05/02/19 23:40 Last Admin: 05/02/19 23:53 Dose: 30 mg Ketorolac Tromethamine (Toradol) 10 mg PO Q6H PRN PRN Reason: Pain Stop: 05/09/19 09:15 Ketorolac Tromethamine (Toradol) 10 mg PO Q6H [facility] Stop: 05/10/19 18:01 Last Admin: 05/06/19 09:30 Dose: Not Given Ketorolac Tromethamine (Toradol) 30 mg IVPUSH Q6H [facility] Stop: 05/10/19 19:54 Last Admin: 05/08/19 08:55 Dose: Not Given Lidocaine (Xylocaine-Mpf 2%) Confirm Administered Dose 5 ml .ROUTE .STK-MED ONE Stop: 05/05/19 14:46 Midazolam HCl (Versed 1 Mg/Ml) Confirm Administered Dose 2 mg .ROUTE .STK-MED ONE Stop: 05/05/19 14:47 Morphine Sulfate (Morphine Chronograph Operator 30 Mg In 30 Ml) 0 mg IV ASDIRECTED [facility]; Protocol Last Admin: 05/07/19 00:58 Dose: 30 mg Naloxone HCl (Narcan) 0.1 mg IVPUSH ASDIRECTED PRN PRN Reason: Respiratory Depression Ondansetron HCl (Zofran) Confirm Administered Dose 4 mg .ROUTE .STK-MED ONE Stop: 05/05/19 14:46 Propofol (Diprivan 20 Ml) Confirm Administered Dose 200 mg .ROUTE .STK-MED ONE Stop: 05/05/19 14:46 Rocuronium [place] (Zemuron) Confirm Administered Dose 100 mg .ROUTE .STK-MED ONE Stop: 05/05/19 14:47 Succinylcholine Chloride (Succinylcholine Chloride) Confirm Administered Dose 200 mg .ROUTE .STK-MED ONE Stop: 05/05/19 14:47 Tramadol HCl (Ultram) 50 mg PO Q4H PRN PRN Reason: Pain Last Admin: 05/04/19 18:24 Dose: 50 mg - Exam Wound/Incisions: Healing Well General: Alert, Oriented Lungs: Normal Respiratory Effort Cardiovascular: Regular Rate GI/Abdominal Exam: Soft, Non-Tender, No Mass, Distended - Problem List & Annotations (1) SBO (small bowel obstruction) SNOMED Code(s): 901013482 Code(s): K56.609 - UNSP INTESTNL OBST, UNSP TO PARTIAL VERSUS COMPLETE OBST Status: Acute Current Visit: Yes - Problem List Review Problem List Initiated/Reviewed/Updated: Yes - My Orders Last 24 Hours: Active Orders 24 hr Category Date Time Status Communication Order [RC] ROUTINE Care 05/09/19 15:32 Active Docusate Sodium/Sennosides [Senokot-S] Med 05/10/19 21:00 Ordered 1 each PO BEDTIME Metoclopramide [Reglan] Med 05/10/19 09:15 Ordered 5 mg PO Q8H Medication Orders Bisacodyl (Dulcolax) 10 mg RECTAL DAILY PRN PRN Reason: Constipation Cyclobenzaprine HCl (Flexeril) 5 mg PO TID [facility] Last Admin: 05/10/19 05:30 Dose: 5 mg Admin: 05/09/19 21:18 Dose: 5 mg Admin: 05/09/19 14:02 Dose: 5 mg Admin: 05/09/19 06:20 Dose: 5 mg Admin: 05/08/19 22:07 Dose: 5 mg Admin: 05/08/19 13:38 Dose: 5 mg Diphenhydramine HCl (Benadryl) 25 mg IVPUSH Q4H PRN PRN Reason: Itching Enoxaparin Sodium (Lovenox) 40 mg SUBCUT Q24H [facility] Last Admin: 05/10/19 08:38 Dose: 40 mg Admin: 05/09/19 09:09 Dose: 40 mg Admin: 05/08/19 08:50 Dose: 40 mg Admin: 05/07/19 08:45 Dose: 40 mg Admin: 05/06/19 09:20 Dose: 40 mg Admin: 05/05/19 09:51 Dose: 40 mg Ketorolac Tromethamine (Toradol) 10 mg PO Q6H [facility] Stop: 05/13/19 08:16 Last Admin: 05/10/19 08:36 Dose: 10 mg Admin: 05/10/19 02:23 Dose: 10 mg Admin: 05/09/19 20:15 Dose: 10 mg Admin: 05/09/19 14:02 Dose: 10 mg Admin: 05/09/19 09:05 Dose: 10 mg Admin: 05/09/19 02:20 Dose: 10 mg Admin: 05/08/19 20:29 Dose: 10 mg Admin: 05/08/19 13:38 Dose: 10 mg Admin: 05/08/19 08:52 Dose: 10 mg Metoclopramide HCl (Reglan) 5 mg PO Q8H [facility] Morphine Sulfate (Morphine) 2 mg IVPUSH Q1H PRN PRN Reason: Pain Last Admin: 05/08/19 07:03 Dose: 2 mg Admin: 05/08/19 05:56 Dose: 2 mg Admin: 05/07/19 23:21 Dose: 2 mg Admin: 05/07/19 21:40 Dose: 2 mg Multivitamins/Minerals/Vitamin C (Tab-A-Shiv) 1 tab PO DAILY [facility] [place] Last Admin: 05/10/19 08:35 Dose: 1 tab Admin: 05/09/19 09:06 Dose: 1 tab Admin: 05/08/19 08:52 Dose: 1 tab Admin: 05/07/19 08:31 Dose: Admin: 05/06/19 09:13 Dose: Admin: 05/05/19 09:27 Dose: Admin: 05/04/19 09:53 Dose: 1 tab Ondansetron HCl (Zofran) 4 mg IVPUSH Q6H PRN PRN Reason: Nausea/Vomiting Last Admin: 05/05/19 11:26 Dose: 4 mg Oxycodone/Acetaminophen (Percocet 325-5 Mg) 2 tab PO Q4H PRN PRN Reason: Abdominal Pain Polyethylene Glycol (Miralax) 17 gm PO DAILY [facility] Last Admin: 05/09/19 09:08 Dose: 17 gm Admin: 05/08/19 08:55 Dose: 17 gm Admin: 05/07/19 08:30 Dose: Admin: 05/06/19 09:13 Dose: Admin: 05/05/19 09:27 Dose: Admin: 05/04/19 09:52 Dose: 17 gm Promethazine HCl (Phenergan) 12.5 mg IM Q6H PRN PRN Reason: Nausea Senna/Docusate Sodium (Senokot-S) 1 each PO BEDTIME [facility] Sodium Chloride (Saline Flush) 10 ml FLUSH ASDIRECTED PRN PRN Reason: Keep Vein Open Sodium Chloride (Saline Flush) 2.5 ml FLUSH ASDIRECTED PRN PRN Reason: Keep Vein Open Sodium Chloride (Normal Saline) 10 ml IV ASDIRECTED PRN PRN Reason: IV Use - Plan Plan (Free Text/Narrative):: Will give patient dulcolax suppository today and start scheduled reglan to see if this produces a BM. Will also switch to senna-docusate tabs. Patient is walking multiple times during the day. Awaiting return of bowel function before advancing diet.
[2019-05-10] MEDS: Metoclopramide 5 MG Tab PO SCH ×2 (09:59→18:30)
[2019-05-10] MEDS ORDERED: Docusate Sodium/Sennosides Tab PO SCH (21:00)
[2019-05-11] MEDS: Ketorolac 10 MG Tab PO SCH ×2 (02:20→08:33)
[2019-05-11] MEDS: Metoclopramide 5 MG Tab PO SCH ×2 (02:20→08:34)
[2019-05-11] MEDS: Cyclobenzaprine 5 MG Tab PO SCH (06:45)
[2019-05-11] MEDS: Enoxaparin 40 MG/0.4 ML Syringe SUBCUT SCH (08:34)
[2019-05-11] MEDS: Multivitamin Tab PO SCH (08:34)
[2019-05-11] MEDS: Polyethylene Glycol 3350 Powder 17 GM Packet PO SCH (08:36)
--- NOTE | 2019-05-11 09:04 | PCM.DCSUM1 ---
Discharge Summary - Hospital Course Free Text/Narrative:: Patient is a 24-year-old male who presented 1 week ago with nausea and vomiting. CT scan of the abdomen pelvis showed an intermediate grade small bowel obstruction. He had a history of a exploratory laparotomy as a child but he was not sure what that was for. He was made nothing by mouth, given IV fluids and monitored over the next 2 days. After the first day his abdominal distention and pain had resolved. I attempted to advance his diet with clear liquids, but after doing this his pain returned and his abdominal distention became worse. The decision was made to proceed with an exploratory laparotomy with lysis of adhesions. 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 He underwent a Meckel's diverticulectomy and lysis of intra-abdominal adhesions. Postoperatively he slowly progressed. On postop day 3 he began to pass flatus and his diet was advanced to clears. He was nervous about eating any food that sipped on clear liquids. He was given MiraLAX, Senokot, and Reglan as well as a Dulcolax suppository and on postop day 5 he had a bowel movement. He ate regular food without any difficulty. He was cleared for discharge. - Discharge Data Discharge Date: 05/11/19 Discharge Disposition: Home, Self-Care 01 Condition: Stable - Discharge Diagnosis/Problem(s) (1) SBO (small bowel obstruction) SNOMED Code(s): 568236228 ICD Code: K56.609 - UNSP INTESTNL OBST, UNSP TO PARTIAL VERSUS COMPLETE OBST Status: Acute - Patient Summary/Data Operative Procedure(s) Performed: exploratory laparotomy - Discharge Plan Prescriptions/Med Rec: Docusate Sodium/Sennosides [Senokot-S] 1 each PO BEDTIME 7 Days tablet Ketorolac [Toradol] 10 mg PO Q6H PRN #20 tablet PRN Reason: Abdominal Pain Multivitamins [Tab-A-Shiv] 1 tab PO DAILY #30 tablet Home Medications: Home Meds Docusate Sodium/Sennosides [Senokot-S] 1 each PO BEDTIME 7 Days tablet [Rx] Ketorolac [Toradol] 10 mg PO Q6H PRN #20 tablet 05/11/19 [Rx] Multivitamins [Tab-A-Shiv] 1 tab PO DAILY #30 tablet 05/11/19 [Rx] Patient Handouts: Docusate Sodium; Senna tablets or capsules, Small Bowel Obstruction, [id number], Ketorolac tablets Referrals: Meena Laughlin MD [Physician] - (Please call on Sunday for appointment after 1 week.) - Discharge Summary/Plan Comment DC Time >30 min.: No - General Info Functional Status: Reports: Pain Controlled, Tolerating Diet, Ambulating, Urinating - Review of Systems General: Reports: No Symptoms HEENT: Reports: No Symptoms Pulmonary: Reports: No Symptoms Cardiovascular: Reports: No Symptoms Gastrointestinal: Reports: No Symptoms Genitourinary: Reports: No Symptoms Musculoskeletal: Reports: No Symptoms - Patient Data Vitals - Most Recent: Last Vital Signs Temp 36.2 C 05/11/19 07:30 Pulse 62 05/11/19 07:30 Resp 16 05/11/19 07:30 BP 90/54 L 05/11/19 07:30 Pulse Ox 99 05/11/19 07:30 Weight - Most Recent: 60.328 kg I&O - Last 24 hours: Intake & Output 05/10/19 05/11/19 05/11/19 22:59 06:59 14:59 Intake Total 370 360 Output Total 375 Balance 370 -15 Med Orders - Current: Current Medications Bisacodyl (Dulcolax) 10 mg RECTAL DAILY PRN PRN Reason: Constipation Cyclobenzaprine HCl (Flexeril) 5 mg PO TID [facility] Last Admin: 05/11/19 06:45 Dose: 5 mg Diphenhydramine HCl (Benadryl) 25 mg IVPUSH Q4H PRN PRN Reason: Itching Enoxaparin Sodium (Lovenox) 40 mg SUBCUT Q24H [facility] Last Admin: 05/11/19 08:34 Dose: 40 mg Ketorolac Tromethamine (Toradol) 10 mg PO Q6H [facility] Stop: 05/13/19 08:16 Last Admin: 05/11/19 08:33 Dose: 10 mg Metoclopramide HCl (Reglan) 5 mg PO Q8H [facility] Last Admin: 05/11/19 08:34 Dose: 5 mg Morphine Sulfate (Morphine) 2 mg IVPUSH Q1H PRN PRN Reason: Pain Last Admin: 05/08/19 07:03 Dose: 2 mg Multivitamins/Minerals/Vitamin C (Tab-A-Shiv) 1 tab PO DAILY [facility] Last Admin: 05/11/19 08:34 Dose: 1 tab Ondansetron HCl (Zofran) 4 mg IVPUSH Q6H PRN PRN Reason: Nausea/Vomiting Last Admin: 05/05/19 11:26 Dose: 4 mg Oxycodone/Acetaminophen (Percocet 325-5 Mg) 2 tab PO Q4H PRN PRN Reason: Abdominal Pain Polyethylene Glycol (Miralax) 17 gm PO DAILY [facility] Last Admin: 05/11/19 08:36 Dose: 17 gm Promethazine HCl (Phenergan) 12.5 mg IM Q6H PRN PRN Reason: Nausea Senna/Docusate Sodium (Senokot-S) 1 each PO BEDTIME [facility] Last Admin: 05/10/19 21:02 Dose: 1 each Sodium Chloride (Saline Flush) 10 ml FLUSH ASDIRECTED PRN PRN Reason: Keep Vein Open Sodium Chloride (Saline Flush) 2.5 ml FLUSH ASDIRECTED PRN PRN Reason: Keep Vein Open Sodium Chloride (Normal Saline) 10 ml IV ASDIRECTED PRN PRN Reason: IV Use Discontinued Medications Albuterol (Proventil Neb Soln) 2.5 mg NEB ONETIME PRN PRN Reason: Wheezing Atropine Sulfate (Atropine 0.1 Mg/Ml) 0.5 mg IVPUSH ASDIRECTED PRN PRN Reason: Hypo-perfusion Atropine Sulfate (Atropine 0.1 Mg/Ml) 1 mg IVPUSH ASDIRECTED PRN PRN Reason: Hypo-Perfusion Bisacodyl (Dulcolax) 5 mg PO DAILY [facility] Last Admin: 05/10/19 08:36 Dose: 5 mg Bupivacaine HCl (Marcaine 0.5%) Confirm Administered Dose 120 ml .ROUTE .STK- MED ONE Stop: 05/05/19 14:54 Cefazolin Sodium (Ancef) Confirm Administered Dose 1 gm .ROUTE .STK-MED ONE Stop: 05/05/19 14:54 Cefazolin Sodium (Ancef) Confirm Administered Dose 1 gm .ROUTE .STK-MED ONE Stop: 05/05/19 16:51 Cefoxitin Sodium (Mefoxin) Confirm Administered Dose 1 gm .ROUTE .STK-MED ONE Stop: 05/05/19 15:58 Dextrose/Water (Dextrose 50% In Water) 50 ml IVPUSH ASDIRECTED PRN PRN Reason: Hypoglycemia Epinephrine HCl (Epinephrine 1:10,000) 1 mg IVPUSH ASDIRECTED PRN PRN Reason: ACLS Guidelines Fentanyl (Sublimaze) Confirm Administered Dose 250 mcg .ROUTE .STK-MED ONE Stop: 05/05/19 14:47 Fentanyl (Sublimaze) 50 - 100 mcg IVPUSH Q5M PRN PRN Reason: Pain Fentanyl (Sublimaze) Confirm Administered Dose 100 mcg .ROUTE .STK-MED ONE Stop: 05/05/19 17:51 Last Admin: 05/05/19 18:50 Dose: 100 mcg Hydromorphone HCl (Dilaudid) 0.5 mg IVPUSH Q1H PRN PRN Reason: Pain (severe 7-10) Hydromorphone HCl (Dilaudid) 0.5 mg IVPUSH Q1H PRN PRN Reason: Pain (severe 7-10) Last Admin: 05/05/19 13:11 Dose: 0.5 mg Sodium Chloride (Normal Saline) 1,000 mls @ 999 mls/hr IV STAT ONE Stop: 05/02/19 23:03 Last Admin: 05/02/19 22:15 Dose: 999 mls/hr Lactated Ringer's (Ringers, Lactated) 1,000 mls @ 125 mls/hr IV ASDIRECTED [facility] Last Admin: 05/05/19 02:49 Dose: 125 mls/hr Lactated Ringer's (Ringers, Lactated) 1,000 mls @ 999 mls/hr IV .BOLUS [facility] Last Admin: 05/03/19 08:59 Dose: 999 mls/hr Magnesium Sulfate 2 gm/ Premix 50 mls @ 50 mls/hr IV ONETIME ONE Stop: 05/03/19 09:35 Last Admin: 05/03/19 09:11 Dose: 50 mls/hr Sodium Chloride (Normal Saline) 1,000 mls @ 100 mls/hr IV ASDIRECTED [facility] Last Admin: 05/05/19 09:27 Dose: 100 mls/hr Pantoprazole Sodium 40 mg/ (Sodium Chloride) 100 mls @ 10 mls/hr IVPUSH DAILY [facility] Last Admin: 05/05/19 10:28 Dose: Not Given Pantoprazole Sodium 40 mg/ (Sodium Chloride) 10 mls @ 300 mls/hr IVPUSH DAILY [facility] Last Admin: 05/07/19 08:43 Dose: 300 mls/hr Sodium Chloride (Normal Saline) Confirm Administered Dose 20 mls @ as directed .ROUTE .STK-MED ONE Stop: 05/05/19 15:58 Potassium Chloride/Dextrose/Sod Cl (D5 Ns With 20 Meq Kcl) 1,000 mls @ 100 mls/ hr IV ASDIRECTED [facility] Last Admin: 05/06/19 05:56 Dose: 100 mls/hr Magnesium Sulfate 4 gm/ Premix 100 mls @ 50 mls/hr IV ONETIME ONE Stop: 05/06/19 09:24 Last Admin: 05/06/19 09:20 Dose: 50 mls/hr Potassium Chloride/Dextrose/Sod Cl (D5 Ns With 20 Meq Kcl) 1,000 mls @ 75 mls/ hr IV ASDIRECTED [facility] Last Admin: 05/08/19 07:03 Dose: 75 mls/hr Magnesium Sulfate 2 gm/ Premix 50 mls @ 50 mls/hr IV ONETIME ONE Stop: 05/08/19 08:59 Last Admin: 05/08/19 08:41 Dose: 50 mls/hr Iopamidol (Isovue-370 (76%)) 100 ml IVPUSH ONETIME ONE Stop: 05/02/19 23:00 Last Admin: 05/02/19 23:11 Dose: 100 ml Ketorolac Tromethamine (Toradol) 30 mg IVPUSH ONETIME ONE Stop: 05/02/19 23:40 Last Admin: 05/02/19 23:53 Dose: 30 mg Ketorolac Tromethamine (Toradol) 10 mg PO Q6H PRN PRN Reason: Pain Stop: 05/09/19 09:15 Ketorolac Tromethamine (Toradol) 10 mg PO Q6H [facility] Stop: 05/10/19 18:01 Last Admin: 05/06/19 09:30 Dose: Not Given Ketorolac Tromethamine (Toradol) 30 mg IVPUSH Q6H [facility] Stop: 05/10/19 19:54 Last Admin: 05/08/19 08:55 Dose: Not Given Lidocaine (Xylocaine-Mpf 2%) Confirm Administered Dose 5 ml .ROUTE .STK-MED ONE Stop: 05/05/19 14:46 Midazolam HCl (Versed 1 Mg/Ml) Confirm Administered Dose 2 mg .ROUTE .STK-MED ONE Stop: 05/05/19 14:47 Morphine Sulfate (Morphine [employer] 30 Mg In 30 Ml) 0 mg IV ASDIRECTED KULDIP; Protocol Last Admin: 05/07/19 00:58 Dose: 30 mg Naloxone HCl (Narcan) 0.1 mg IVPUSH ASDIRECTED PRN PRN Reason: Respiratory Depression Ondansetron HCl (Zofran) Confirm Administered Dose 4 mg .ROUTE .STK-MED ONE Stop: 05/05/19 14:46 Propofol (Diprivan 20 Ml) Confirm Administered Dose 200 mg .ROUTE .STK-MED ONE Stop: 05/05/19 14:46 Rocuronium [place] (Zemuron) Confirm Administered Dose 100 mg .ROUTE .STK-MED ONE Stop: 05/05/19 14:47 Succinylcholine Chloride (Succinylcholine Chloride) Confirm Administered Dose 200 mg .ROUTE .STK-MED ONE Stop: 05/05/19 14:47 Tramadol HCl (Ultram) 50 mg PO Q4H PRN PRN Reason: Pain Last Admin: 05/04/19 18:24 Dose: 50 mg - Exam General: Reports: Alert, Oriented, Cooperative HEENT: Reports: Pupils Equal, Pupils Reactive Lungs: Reports: Clear to Auscultation, Normal Respiratory Effort Cardiovascular: Reports: Regular Rate, Regular Rhythm GI/Abdominal Exam: Soft, Non-Tender, No Distention, No Mass (Male) Exam: Normal Inspection
== END 2019-05-11 10:40 | disposition home or self-care (01) | DRG 330 ==
LOC: MW.ED 21:36 → MW.MS 05-03 01:26 → OBSVTOIN 05-05 09:02 → MW.MS 05-05 09:03 → MW.ICU 05-05 18:53 → MW.MS 05-06 16:21
PROVIDERS: ADMIT Surgery; ATTEND Surgery
PROC: 0DB80ZZ Excision of Small Intestine, Open Approach (ICD-10-PCS; principal; 2019-05-05)
DX: Q43.0 Meckel's diverticulum (displaced) (hypertrophic) (principal); K56.51 Intestinal adhesions [bands], with partial obstruction; E87.1 Hypo-osmolality and hyponatremia; E86.0 Dehydration; K46.9 Unspecified abdominal hernia without obstruction or gangrene
CPT/HCPCS: 00840; 36415; 74177; 74177-26; 74250; 74250-26; 80053; 81001; 82962; 83605; 83735; 84100; 85025; 85027; 88305; 96361; 96374; 96375; 96376; 99283; 99285-25; A9270-GY; C9113; G0378; J0330; J0690; J0694; J1170; J1650; J1885; J2001; J2250; J2270; J2274; J2405; J2704; J3010; J3475; J3480; J3490; J7040; J7050; J7120; Q9967